=== PATIENT | male | born 1940 | race Caucasian/White ===

== ENCOUNTER → 2018-12-06 13:53 | Outpatient (CLI) | payer MEDICARE, SELFPAY ==
[2018-12-02 10:34] VITALS: BMI 33.4
== END ==
PROVIDERS: Family Provider Internal Medicine; PCP Internal Medicine; Referring Provider Physician Assistant Medical; Visit Provider Physician Assistant Medical
DX: R00.1 Bradycardia, unspecified (principal)
CPT/HCPCS: 93225; 93226

== ENCOUNTER → 2019-04-01 11:58 | Outpatient (CLI) | payer MEDICARE, SELFPAY ==
[2019-03-20 15:53] VITALS: BMI 33.4
[2019-04-01 13:07] LABS: AST(SGOT) 18 U/L (15-37); Alanine Aminotransfer ALT/SGPT 30 U/L (16-61); Albumin, Serum 3.5 g/dL (3.2-5.0); Alkaline Phosphatase 80 U/L (45-117); Bilirubin, Direct 0.12 mg/dL (0.00-0.30); Cholesterol 190 mg/dL (200); Globulin 3.6 g/dL (2.2-4.2); High Density Lipoprotein 44 mg/dL; Protein, Total 7.1 g/dL (6.4-8.2); Triglycerides 141 mg/dL; Very Low Density Lipoprotein 28 mg/dL (5-40)
== END ==
LOC: LAB.FUTURE 11:58 → LAB 04-02 06:33
PROVIDERS: PCP Internal Medicine; Referring Provider Internal Medicine Cardiovascular Disease; Visit Provider Internal Medicine Cardiovascular Disease
DX: I10 Essential (primary) hypertension (principal); Z13.220 Encounter for screening for lipoid disorders
CPT/HCPCS: 36415; 80061; 80076

== ENCOUNTER → 2019-04-07 10:33 | Outpatient (CLI) | payer MEDICARE, SELFPAY ==
[2019-03-20 15:53] VITALS: BMI 33.4
--- NOTE | 2019-04-07 10:34 | ECHOD_ITS ---
Reason For Study: ARRYTHYMIA Procedure This was a 2D Doppler, Color Flow transthoracic echocardiogram. Exam performed in department. Left Ventricle Normal size and thickness. The estimated ejection fraction is 50-55 %. Stage 1 diastolic dysfunction. There is borderline global hypokinesis of the left ventricle. Right Ventricle Mildly dilated right ventricle. Normal systolic function. Atria The left atrium is mildly enlarged. Normal right atrium. Normal atrial septum. Mitral Valve The mitral valve is structurally normal. No prolapse or stenosis seen. Trivial mitral valve insufficiency. Tricuspid Valve Normal tricuspid valve. Unable to estimate RV systolic pressure due to insufficient tricuspid regurgitant envelope. Aortic Valve Normal aortic valve. Trisinus/trileaflet aortic valve. Pulmonic Valve Normal pulmonic valve. Great Vessels Normal aortic root. Normal arch. Normal inferior vena cava. Inferior vena cava collapse with sniff. Pericardium/Pleural No pericardial effusion. MMode/2D Measurements & Calculations LVIDd: 4.9 cm IVSd: 0.84 cm Ao root diam: 3.4 cm LVIDs: 3.6 cm LVPWd: 0.88 cm RVDd: 3.8 cm FS: 26.2 % LAV(MOD-bp): 62.2 ml LVAd ap4: 35.1 cm2 SV(MOD-sp4): 67.0 ml LAV(MOD-bp) Indexed: 29.2 ml/m2 EDV(MOD-sp4): 119.2 ml LAV(MOD-sp2): 55.5 ml EDV(sp4-el): 123.5 ml LAV(MOD-sp4): 66.7 ml LVAs ap4: 20.4 cm2 ESV(MOD-sp4): 52.2 ml ESV(sp4-el): 51.3 ml EF(MOD-sp4): 56.2 % EF(sp4-el): 58.4 % SV(sp4-el): 72.2 ml LA A4 area: 22.0 cm2 LA dimension(2D): 3.9 cm RA A4 area: 19.7 cm2 Time Measurements MV dec time: 0.22 sec Doppler Measurements & Calculations MV E max elver: 65.7 cm/sec Lat Peak E' Elver: 8.1 cm/sec Med Peak E' Elver: 6.0 cm/sec MV A max elver: 60.5 cm/sec E/E' lat: 8.1 E/E' med: 10.9 MV E/A: 1.1 Ao V2 max: 150.5 cm/sec LV V1 max: 91.3 cm/sec PA V2 max: 102.2 cm/sec Ao max P.1 mmHg LV V1 max P.3 mmHg Interpretation Summary The estimated ejection fraction is 50-55 %. Stage 1 diastolic dysfunction. There is borderline global hypokinesis of the left ventricle. The left atrium is mildly enlarged. Trivial mitral valve insufficiency. Unable to estimate RV systolic pressure due to insufficient tricuspid regurgitant envelope. Compared to echo report dated 11/16/2016, no appreciable changes noted. Ordering Physician: Jose Gr Referring Physician: SANDRINE MEANS Performed By: Elena Posada RDCS
== END ==
PROVIDERS: PCP Internal Medicine; Referring Provider Internal Medicine Cardiovascular Disease; Visit Provider Internal Medicine Cardiovascular Disease
DX: R94.31 Abnormal electrocardiogram [ECG] [EKG] (principal); I10 Essential (primary) hypertension; R00.1 Bradycardia, unspecified
CPT/HCPCS: 93306

== ENCOUNTER → 2019-04-14 10:18 | Outpatient (CLI) | payer MEDICARE, SELFPAY ==
[2019-03-20 15:53] VITALS: BMI 33.4
--- NOTE | 2019-04-14 10:19 | STEWCON_ITS ---
Reason For Study: Arrhythmia Stress Results Protocol: Mahesh Protocol WITH DEFINITY Maximum Predicted HR: 144 bpm Target HR: 122 bpm % Maximum Predicted HR: 85 % DurationHeart Rate Stage (mm:ss) (bpm) BP Comment Baseline 46 140/86No Chest Pain; 4 ML Diiluted Definity Mahesh Protocol Stage I 3:00 85 164/62No Chest Pain Mahesh Protocol Stage II 3:00 98 160/74No Chest Pain Mahesh Protocol Stage III 3:00 122 170/74No Chest Pain; Mild Dyspnea Recovery 60 130/76No Chest Pain Stress Duration: 9:00 mm:ss Maximum Stress HR: 122 bpm METS: 10 Baseline Echocardiogram Findings The estimated ejection fraction is 65 %. Stress Echo Wall motion Data Resting WM Intermediate WM Stress WM Resting Wall Motion Wall Motion Stress No regional wall motion No regional wall motion abnormalities noted. abnormalities noted. EKG Data The baseline ECG displays normal sinus rhythm. The patient exercised according to the regular Mahesh protocol for a total duration of 9:00. The maximum heart rate attained was 123 beats per minute. This was 85% of maximum predicted heart rate. The patient exercised into stage 4 of the Mahesh protocol. During stress, there were no ST or T wave changes noted to suggest ischemia. No clinical angina was noted. Interpretation Summary The estimated ejection fraction is 65 %. Normal, adequate, treadmill echocardiogram. Negative for ischemia by EKG and echocardiographic criteria. No anginal symptoms noted. Rare PVC noted. Average exercise capacity for age. Test terminated due to fatigue and legs fatigue. Final LVEF is 75%. Decrease sensitivity due to poor echo windows requiring Definity agent. Patient tolerated procedure well. No complications. The study was technically difficult. Contrast injection was performed. Ordering Physician: Jose Gr Referring Physician: Felton Portillo Performed By: Anca Sears, RACHELLE, RVT
== END ==
PROVIDERS: PCP Internal Medicine; Referring Provider Internal Medicine Cardiovascular Disease; Visit Provider Internal Medicine Cardiovascular Disease
DX: R94.31 Abnormal electrocardiogram [ECG] [EKG] (principal); I10 Essential (primary) hypertension; R00.1 Bradycardia, unspecified
CPT/HCPCS: 93017; 93350; Q9957; A4216; C8928

== ENCOUNTER → 2020-09-02 09:11 | Outpatient (CLI) | payer MEDICARE, SELFPAY ==
[2020-03-22 09:36] VITALS: BMI 32.8
[2020-09-02 16:06] LABS: Anion Gap 6 (5-15); BUN 18 mg/dL (7-18); BUN/Creat Ratio 15.7 RATIO (10-20); Calcium,Total 8.4 mg/dL (8.5-10.1); Chloride 106 mmol/L (98-107); Creatinine, Serum 1.15 mg/dL (0.70-1.30); EST Glomerular Filtration Rate 65 mL/min (>60); Est Glom Filt Rate - Afr Amer 79 mL/min (>60); Glucose 101 mg/dL (74-106); Potassium 4.1 mmol/L (3.5-5.1); Sodium Level 139 mmol/L (136-145)
== END ==
PROVIDERS: PCP Internal Medicine; Referring Provider Internal Medicine Cardiovascular Disease; Visit Provider Internal Medicine Cardiovascular Disease
DX: I10 Essential (primary) hypertension (principal); R00.1 Bradycardia, unspecified; R42 Dizziness and giddiness
CPT/HCPCS: 36415; 80048; 93788

== ENCOUNTER 2021-01-31 16:40 | Emergency (ER) | payer MEDICARE, SELFPAY ==
[2021-01-31 16:42] VITALS: BP 113/77; PULSE 60; RESP 16; TEMP 36.8; BMI 33.4
--- NOTE | 2021-01-31 17:21 | RAD_ITS ---
STUDY: X-RAY CHEST REASON FOR EXAM: Male, 80 years old. covid TECHNIQUE: 1 view COMPARISON: 11/15/2016 FINDINGS: Cardiomediastinal silhouette is unremarkable. Costophrenic angles are sharp. Lungs are clear. The trachea is midline. There is no pneumothorax. The bones are grossly intact. RAD/Chest 1 View (Portable) IMPRESSION: No acute cardiopulmonary process. Electronically Signed: Robin Field MD at 18:33 EST Tel , Service support ,
[2021-01-31 17:26] VITALS: BP 119/83; PULSE 57; RESP 19; O2SAT 92
[2021-01-31 17:41] VITALS: BP 117/88; BP 130/82; BP 139/87; PULSE 56; PULSE 61; PULSE 62
[2021-01-31] MEDS: 0.9% Normal Saline 1,000 ML 1000 ML IV (17:48)
[2021-01-31 18:14] LABS: Absolute Lymphocyte Count 0.73 X10^3/uL (0.83-4.51); Absolute Neutrophil Count 1.9 X10^3/uL (2.0-7.7); Basophil# 0.02 X10^3/uL; Basophil% 0.6 % (0-1); Eosinophil# 0.01 X10^3/uL; Eosinophils% 0.3 % (0-5); Hemoglobin 13.3 g/dL (13.0-16.5); Lymphocyte # 0.73 X10^3/ul (0.83-4.51); Lymphocyte % 23.6 % (19-41); Mean Corp Hgb Conc 33.3 g/dL (32-36); Mean Corpuscular Hgb 30.2 pg (27.0-32.0); Mean Corpuscular Volume 90.7 fL (80-94); Monocyte# 0.47 X10^3/uL; Monocyte% 15.2 % (0-10); NRBC Flagged by Analyzer 0 % (0-5); Neutrophil # 1.85 X10^3/uL (2.7-7.7); Platelet Count 113 K/mm3 (150-450); RBC Distribution Width CV 12.3 % (11.6-14.6); RBC Distribution Width SD 41.1 fl (35.1-43.9); Red Blood Count 4.41 M/mm3 (4.6-6.2); White Blood Count 3.1 K/mm3 (4.4-11.0)
[2021-01-31 18:15] LABS: ALB/GLOB Ratio 0.8 RATIO (0.9-2.4); AST(SGOT) 32 U/L (15-37); Alanine Aminotransfer ALT/SGPT 40 U/L (16-61); Albumin, Serum 2.9 g/dL (3.2-5.0); Alkaline Phosphatase 71 U/L (45-117); Anion Gap 8 (5-15); BUN 19 mg/dL (7-18); BUN/Creat Ratio 19.9 RATIO (10-20); Calcium,Total 8.1 mg/dL (8.5-10.1); Chloride 104 mmol/L (98-107); Creatinine, Serum 0.96 mg/dL (0.70-1.30); EST Glomerular Filtration Rate 81 mL/min (>60); Est Glom Filt Rate - Afr Amer 98 mL/min (>60); Estimated Creatinine Clearance 61.35 ml/min; Globulin 3.8 g/dL (2.2-4.2); Glucose 100 mg/dL (74-106); Potassium 3.7 mmol/L (3.5-5.1); Protein, Total 6.7 g/dL (6.4-8.2); Sodium Level 138 mmol/L (136-145)
[2021-01-31 19:00] VITALS: BP 169/93; PULSE 61; RESP 16; O2SAT 95
[2021-01-31 19:38] LABS: Bacteria 0 SEEN /hpf (None Seen); Mucous, Urine 0 SEEN /hpf (<or=2+); Red Blood Cells-Urine 0 SEEN /hpf (0-5); Squamous Epithelial Cells - UA 0 SEEN /hpf (0-5); White Blood Cells 0 SEEN /hpf (0-5)
[2021-01-31 19:58] LABS: Color, Urine Straw (Yellow); Glucose, Dipstick Normal (Normal); Ketone-Dipstick Negative (Negative); Leukocyte Esterase-Dipstick Negative /ul (Negative); Nitrite-Dipstick Negative (Negative); Occult Blood-Urine Negative /ul (Negative); Protein-Dipstick Negative (Negative); Urine Bilirubin Dipstick Negative (Negative); Urine Clarity Clear (Clear); Urine Urobilinogen Normal (Normal); Urine pH 6.5 (5.0 - 8.0)
[2021-01-31 20:01] VITALS: BP 152/89; PULSE 66; RESP 16; O2SAT 95
--- NOTE | 2021-01-31 21:04 | EDS_ITS ---
HPI History of Present Illness Chief Complaint: Hypotension Informant: patient and family Narrative Narrative: Patient presenting to the emergency department for low blood pressure. Patient states that he was diagnosed with COVID-19 about 2 weeks ago. He states that today his blood pressure was reading 90 systolic and his head felt very heavy. He feels generalized fatigue but has felt that throughout the Covid diagnosis. Patient denies any significant shortness of breath. He has had decreased appetite PFSH PFSH Medical History Essential hypertension Sinus bradycardia Home Medications aspirin 81 mg PO DAILY@0800 11/15/16 [History Last Taken 11/15/16] zolpidem 5 mg PO QHS PRN 11/15/16 [History Last Taken Unknown] tamsulosin 0.4 mg capsule 0.4 mg PO BID cap 06/14/17 [History Last Taken Unknown] omeprazole 40 mg capsule,delayed release 40 mg PO DAILY 05/28/18 [History Last Taken Unknown] benzonatate 100 mg PO TID PRN 01/31/21 [History Last Taken Unknown] doxycycline hyclate 100 mg PO BID 01/31/21 [History Last Taken Unknown] fluticasone propionate 1 spray INTRANASAL DAILY 01/31/21 [History Last Taken Unknown] losartan 12.5 mg PO DAILY 01/31/21 [History Last Taken Unknown] losartan 25 mg PO QHS 01/31/21 [History Last Taken Unknown] Allergy/AdvReac Type Severity Reaction Status Date / Time amoxicillin Allergy Unknown Verified 01/31/21 16:46 lisinopril [From Zestril] Allergy Unknown Verified 01/31/21 16:46 suture Allergy Swelling Verified 01/31/21 16:46 azithromycin AdvReac constipatio Verified 01/31/21 16:46 n Family History Father CAD (coronary artery disease) CVA (cerebral vascular accident) Myocardial infarction Sister Heart disease Sister Heart disease Social History Smoking Status: Former smoker alcohol intake: never substance use type: does not use ROS ROS ED Constitutional Constitutional ED: Reports chills and fever(s); Denies weight loss Eyes Eyes: Denies change in vision or diplopia ENT ENT ED: Reports rhinorrhea; Denies ear pain or sore throat Cardiovascular Cardiovascular: Denies chest pain, orthopnea, palpitations or racing heartbeat Respiratory/Chest Respiratory/Chest: Reports cough; Denies dyspnea or orthopnea Gastrointestinal Gastrointestinal: Reports diarrhea and vomiting; Denies abdominal pain or nausea Genitourinary Genitourinary ED: Denies dysuria, hematuria or urinary frequency Musculoskeletal Musculoskeletal: Reports myalgias; Denies arthralgias Integumentary Denies abscess or rash Neurologic Neurologic: Reports headache(s); Denies weakness Psychiatric Psychiatric: Denies anxiety, depression, suicidal ideation or suicidal thoughts Endocrine Endocrinology: Denies polydipsia, polyphagia or polyuria Allergic/Immunologic Allergic/Immunologic ED: Denies mouth swelling, tongue swelling or urticaria EXAM Physical Exam Const Vital Signs: 01/31/21 16:42 01/31/21 17:26 01/31/21 17:41 Temperature 98.2 F Temperature Source Temporal Pulse Rate 60 57 L Pulse Rate [Lying] 56 L Pulse Rate [Sitting] 61 Pulse Rate [Standing] 62 Respiratory Rate 16 19 H Respiratory Effort Normal Non-Labored Respiratory Pattern Normal Blood Pressure 113/77 119/83 H Blood Pressure [Lying] 130/82 H Blood Pressure [Sitting] 139/87 H Blood Pressure [Standing] 117/88 H Blood Pressure Mean 89 95 Blood Pressure Mean [Lying] 98 Blood Pressure Mean [Sitting] 104 Blood Pressure Mean [Standing] 97 Pulse Ox 92 Oxygen Delivery Method Room Air 01/31/21 19:00 01/31/21 20:01 Temperature Temperature Source Pulse Rate 61 66 Pulse Rate [Lying] Pulse Rate [Sitting] Pulse Rate [Standing] Respiratory Rate 16 16 Respiratory Effort Respiratory Pattern Blood Pressure 169/93 H 152/89 H Blood Pressure [Lying] Blood Pressure [Sitting] Blood Pressure [Standing] Blood Pressure Mean 118 Blood Pressure Mean [Lying] Blood Pressure Mean [Sitting] Blood Pressure Mean [Standing] Pulse Ox 95 95 Oxygen Delivery Method Room Air Positive well nourished and well developed General Appearance ED: well developed HEENT Reports normocephalic, head/scalp atraumatic, TM's clear and moist mucous membranes Negative for trauma Tympanic Membrane ED: Yes TM's clear Eyes PERRL and EOMs intact bilaterally Neck no lymphadenopathy, supple and no JVD Resp normal respiratory effort and clear to auscultation bilaterally Cardio regular rate, regular rhythm and no murmurs GI normal to inspection, nondistended, normoactive bowel sounds and non-tender Palpation: soft Back/Spine no CVA tenderness and normal ROM Extremity normal to inspection General Extremety ED: Negative for edema General Extremity: Negative for edema Neuro oriented x3 and CN's II-XII intact bilaterally Sensorium / Orientation: alert Motor Exam: strength 5/5 throughout Psych mental status grossly normal Mood & Affect: Negative for depressed or tearful Skin no rashes or lesions noted and no wounds MDM MDM MDM Narrative Medical decision making narrative: Patient is not orthostatic. He has had normotensive readings. He is slightly leukopenic at 3.1. Platelets 113. Most likely these are due to his Covid diagnosis. Urinalysis is normal has a specific gravity 1.01. He clinically appears well and I think can be stable for discharge. Lab Data Attestation: I reviewed the patient's lab results. Labs: Laboratory Results - last 24 hr 01/31/21 01/31/21 01/31/21 17:40 17:40 19:30 WBC 3.1 L RBC 4.41 L Hgb 13.3 Hct 40.0 MCV 90.7 MCH 30.2 MCHC 33.3 RDW Std Deviation 41.1 RDW Coeff of Sudeep 12.3 Plt Count 113 L MPV 11.0 Immature Gran % (Auto) 0.300 Neut % (Auto) 60.0 Lymph % (Auto) 23.6 [place] % (Auto) 15.2 H Eos % (Auto) 0.3 Baso % (Auto) 0.6 Absolute Neuts (auto) 1.9 L Absolute Lymphs (auto) 0.73 L Nucleated RBC % 0 Sodium 138 Potassium 3.7 Chloride 104 Carbon Dioxide 26.0 Anion Gap 8 BUN 19 H Creatinine 0.96 Estim Creat Clear Calc 61.35 Est GFR (MDRD) Af Amer 98 Est GFR (MDRD) Non-Af 81 BUN/Creatinine Ratio 19.9 Glucose 100 Calcium 8.1 L Total Bilirubin 0.30 AST 32 ALT 40 Alkaline Phosphatase 71 Total Protein 6.7 Albumin 2.9 L Globulin 3.8 Albumin/Globulin Ratio 0.8 L Urine Color Straw Urine Clarity Clear Urine pH 6.5 Ur Specific [place] 1.010 Urine Protein Negative Urine Glucose (UA) Normal Urine Ketones Negative Urine Occult Blood Negative Urine Nitrite Negative Urine Bilirubin Negative Urine Urobilinogen Normal Ur Leukocyte Esterase Negative Urine RBC 0 SEEN Urine WBC 0 SEEN Ur Squamous Epith Cells 0 SEEN Urine Bacteria 0 SEEN Urine Mucus 0 SEEN Radiography Diagnostic Testing: Clinical Impression(s) from Imaging Studies Chest X-Ray 01/31/21 17:21 IMPRESSION: No acute cardiopulmonary process. Electronically Signed: Robin Field MD at 18:33 EST Tel , Service support , Discharge Plan Triage Chief Complaint: Hypotension ED Provider: Jose Grimaldo Dx/Rx/DC Orders Clinical Impression: Hypotension, COVID-19 Instructions: ED Low Blood Pressure, All Causes Prescriptions: No Action omeprazole 40 mg capsule,delayed release(DR/EC) 40 mg PO DAILY RF: 0 aspirin 81 MG tablet,chewable 81 mg PO DAILY@0800 RF: 0 zolpidem 5 MG tablet 5 mg PO QHS PRN (Reason: Sleep) RF: 0 tamsulosin 0.4 mg capsule,extended release 24hr 0.4 mg PO BID RF: 0 benzonatate 100 mg capsule 100 mg PO TID PRN (Reason: Cough) RF: 0 losartan 25 mg tablet 12.5 mg PO DAILY RF: 0 fluticasone propionate 50 mcg/actuation spray,suspension 1 spray INTRANASAL DAILY RF: 0 doxycycline hyclate 100 mg tablet 100 mg PO BID RF: 0 losartan 25 mg tablet 25 mg PO QHS RF: 0 Primary Care Provider: Felton Portillo Referrals: Felton Portillo MD [Primary Care Provider] - As Needed Disposition Disposition: Home, Self Care Discharge Date/Time: 01/31/21 20:06
== END 2021-01-31 20:06 | disposition home or self-care (01) ==
PROVIDERS: Emergency Provider Emergency Medicine; PCP Internal Medicine
DX: U07.1 COVID-19 (principal); I95.9 Hypotension, unspecified; I10 Essential (primary) hypertension; Z79.82 Long term (current) use of aspirin; Z79.899 Other long term (current) drug therapy; Z87.891 Personal history of nicotine dependence
CPT/HCPCS: 71045; 80053; 81001; 85025; 96360; 96361; 99285; J7030; A4216

== ENCOUNTER → 2021-09-13 | Outpatient (CLI) | payer MEDICARE, SELFPAY ==
--- NOTE | 2021-09-13 13:09 | ECHOD_ITS ---
Reason For Study: DYSPNEA/SOB Procedure This was a 2D Doppler, Color Flow transthoracic echocardiogram. The study was technically difficult. Exam performed in department. Left Ventricle Based upon the 2D echocardiographic images obtained there appears to be grossly normal left ventricular size, wall motion, and systolic function. The estimated ejection fraction is 55 %. Diastolic function is indeterminate. Right Ventricle Normal RV size. Normal systolic function. Atria Normal left atrium. Normal right atrium. No doppler evidence for ASD. Mitral Valve There is no mitral annular calcification. Normal mitral valve. Mild (1+) mitral valve insufficiency. Tricuspid Valve Normal tricuspid valve. Trivial tricuspid valve insufficiency. Unable to estimate RV systolic pressure/pulmonary artery pressure due to technically difficult study. Aortic Valve Trisinus/trileaflet aortic valve. Mild focal aortic valve thickening. Mild focal aortic valve calcification. Pulmonic Valve The pulmonic valve is not well visualized. Mild (1+) pulmonic valve insufficiency. Great Vessels The aortic root is not well visualized. Pericardium/Pleural No pericardial effusion. MMode/2D Measurements & Calculations LVIDd: 5.4 cm IVSd: 1.1 cm Ao root diam: 3.3 cm LVIDs: 3.9 cm LVPWd: 0.97 cm LA dimension: 3.9 cm RVDd: 3.8 cm FS: 28.9 % LAV(MOD-bp): 77.1 ml LA A4 area: 23.8 cm2 RA A4 area: 19.9 cm2 LAV(MOD-bp) Indexed: 36.4 ml/m2 LAV(MOD-sp2): 78.1 ml LAV(MOD-sp4): 76.2 ml Time Measurements MV dec time: 0.26 sec Doppler Measurements & Calculations MV E max elver: 54.4 cm/sec Lat Peak E' Elver: 7.2 cm/sec Med Peak E' Elver: 6.9 cm/sec MV A max elver: 60.3 cm/sec E/E' lat: 7.6 E/E' med: 7.8 MV E/A: 0.90 MV dec slope: 224.3 cm/sec2 Ao V2 max: 133.5 cm/sec LV V1 max: 97.6 cm/sec Ao max P.1 mmHg LV V1 max P.8 mmHg Ao V2 mean: 86.1 cm/sec LV V1 mean P.9 mmHg Ao mean P.5 mmHg LV V1 mean: 62.7 cm/sec Ao V2 VTI: 31.3 cm LV V1 VTI: 22.4 cm PA V2 max: 109.7 cm/sec ECHO/Echo Complete Interpretation Summary The study was technically difficult. Based upon the 2D echocardiographic images obtained there appears to be grossly normal left ventricular size, wall motion, and systolic function. The estimated ejection fraction is 55 %. Mild (1+) mitral valve insufficiency. Trivial tricuspid valve insufficiency. Mild focal aortic valve thickening. Mild focal aortic valve calcification. Mild (1+) pulmonic valve insufficiency. Unable to estimate RV systolic pressure/pulmonary artery pressure due to techni jose difficult study. Diastolic function is indeterminate. Ordering Physician: Crystal Gutierrez Referring Physician: Felton Portillo Performed By: Anca Sears, RACHELLE, RVT
== END | disposition home or self-care (01) ==
LOC: CVS 13:07
PROVIDERS: PCP Internal Medicine; Referring Provider Nurse Practitioner Gerontology; Visit Provider Nurse Practitioner Gerontology
DX: R06.09 Other forms of dyspnea (principal)
CPT/HCPCS: 93306

== ENCOUNTER → 2022-05-17 | Outpatient (CLI) | payer MEDICARE, SELFPAY ==
[2022-05-17 16:03] LABS: BNP,B-Type NATRIURETIC PEPTIDE 52.2 pg/mL (0-100)
[2022-05-17 16:04] LABS: Absolute Lymphocyte Count 1.32 X10^3/uL (0.83-4.51); Absolute Neutrophil Count 3.9 X10^3/uL (2.0-7.7); Basophil# 0.05 X10^3/uL; Basophil% 0.8 % (0-1); Eosinophil# 0.13 X10^3/uL; Eosinophils% 2.2 % (0-5); Hematocrit 41.2 % (40-54); Hemoglobin 13.3 g/dL (13.0-16.5); Lymphocyte # 1.32 X10^3/ul (0.83-4.51); Mean Corp Hgb Conc 32.3 g/dL (32-36); Mean Corpuscular Hgb 30.5 pg (27.0-32.0); Mean Corpuscular Volume 94.5 fL (80-94); Mean Platelet Vol. 10.5 fl (6.2-12.0); Monocyte# 0.54 X10^3/uL; NRBC Flagged by Analyzer 0 % (0-5); Neutrophil # 3.94 X10^3/uL (2.7-7.7); Neutrophil % 65.7 % (47-70); Platelet Count 157 K/mm3 (150-450); RBC Distribution Width SD 45.1 fl (35.1-43.9); Red Blood Count 4.36 M/mm3 (4.6-6.2)
[2022-05-17 16:21] LABS: Anion Gap 1 (5-15); BUN 21 mg/dL (7-18); BUN/Creat Ratio 18.1 RATIO (10-20); Calcium,Total 8.6 mg/dL (8.5-10.1); Chloride 107 mmol/L (98-107); Creatinine, Serum 1.16 mg/dL (0.70-1.30); EST Glomerular Filtration Rate 64 mL/min (>60); Est Glom Filt Rate - Afr Amer 78 mL/min (>60); Free T3 2.2 pg/mL (2.18-3.98); Glucose 88 mg/dL (74-106); Potassium 4.2 mmol/L (3.5-5.1); Sodium Level 138 mmol/L (136-145); T4 Free Direct 0.95 ng/dL (0.76-1.46); Thyroid Stim Hormone (TSH) 1.92 uIU/mL (0.358-3.74)
== END | disposition home or self-care (01) ==
LOC: LAB 15:11
PROVIDERS: PCP Internal Medicine; Referring Provider Nurse Practitioner Gerontology; Visit Provider Nurse Practitioner Gerontology
DX: R06.09 Other forms of dyspnea (principal); R53.83 Other fatigue
CPT/HCPCS: 36415; 80048; 83880; 84439; 84443; 84481; 85025

== ENCOUNTER → 2022-05-24 | Outpatient (CLI) | payer MEDICARE, SELFPAY ==
--- NOTE | 2022-05-24 09:51 | STRESSREP ---
Stress Test Report Date: 05/24/2022 Procedure: Exercise tolerance test/imaging study Indications: Chest Consent: Per the patient Procedure: The patient exercised on a Mahesh protocol for 6-minute achieving a peak heart rate of 112 bpm (79% predicted maximal heart rate) with a peak blood pressure 172/90 mmHg and a peak MET capacity of seven-point METs. The baseline ECG demonstrated normal sinus rhythm. The peak exercise ECG demonstrated no ischemic change. There were no cardiac dysrhythmias pretest, during exercise, or recovery. The functional capacity was considered below average. There was no complaint of chest discomfort during exercise or recovery. The examination was discontinued secondary to dyspnea and fatigue. The patient was injected with 14.6 mCi of technetium 99m Cardiolite and subsequently rest SPECT Cardiolite nuclear imaging was obtained in the horizontal long, vertical long, and short axis views. Post-exercise, the patient was injected with 44.1 mCi of technetium 99m Cardiolite and subsequently stress SPECT Cardiolite nuclear imaging was obtained in the horizontal long, vertical long, and short axis views. A gated Cardiolite study at peak stress was obtained. Rest and stress SPECT Cardiolite nuclear imaging status post realignment, normalization, and attenuation correction, demonstrates the appearance of relative uniform tracer uptake and myocardial perfusion appearing within normal limits. There is end systolic thickening and brightening. The gated Cardiolite study demonstrates myocardial thickening and inward wall motion. The reported LVEF is 60%. Impression: 1. 79% maximum predicted heart rate achieved. 2. Peak exercise ECG no ischemic changes 3. There were no cardiac dysrhythmias pretest, during exercise, or recovery 4. Rest and stress SPECT Cardiolite nuclear imaging demonstrate no fixed or reversible perfusion defects. 5. The gated Cardiolite study reports an LVEF of 60%. This note was generated with [employer] software. It may contain incorrect words, spelling, and punctuation that were not noted in checking the note before signing.
== END | disposition home or self-care (01) ==
PROVIDERS: PCP Internal Medicine; Referring Provider Nurse Practitioner Gerontology; Visit Provider Nurse Practitioner Gerontology
DX: R00.1 Bradycardia, unspecified (principal); R07.9 Chest pain, unspecified; R53.83 Other fatigue; R06.09 Other forms of dyspnea
CPT/HCPCS: 78452; 93017; 93225; 93226; A9500; A4216

== ENCOUNTER → 2022-06-19 | Outpatient (CLI) | payer MEDICARE, SELFPAY ==
[2022-06-19 12:05] LABS: Hematocrit 43.9 % (40-54); Hemoglobin 14.3 g/dL (13.0-16.5); Mean Corp Hgb Conc 32.6 g/dL (32-36); Mean Corpuscular Hgb 30.9 pg (27.0-32.0); Mean Corpuscular Volume 94.8 fL (80-94); Mean Platelet Vol. 10.6 fl (6.2-12.0); Platelet Count 149 K/mm3 (150-450); RBC Distribution Width SD 45.2 fl (35.1-43.9); Red Blood Count 4.63 M/mm3 (4.6-6.2)
[2022-06-19 12:23] LABS: BNP,B-Type NATRIURETIC PEPTIDE 35.7 pg/mL (0-100)
[2022-06-19 12:46] LABS: Anion Gap 0 (5-15); BUN 19 mg/dL (7-18); BUN/Creat Ratio 17.6 RATIO (10-20); Chloride 107 mmol/L (98-107); Creatinine, Serum 1.08 mg/dL (0.70-1.30); EST Glomerular Filtration Rate 70 mL/min (>60); Est Glom Filt Rate - Afr Amer 85 mL/min (>60); Glucose 109 mg/dL (74-106); Potassium 4.4 mmol/L (3.5-5.1); Sodium Level 137 mmol/L (136-145); T4 Total, Thyroxin 8.7 ug/dL (4.5-12.1); Thyroid Stim Hormone (TSH) 1.29 uIU/mL (0.358-3.74)
== END | disposition home or self-care (01) ==
LOC: LAB 11:09
PROVIDERS: PCP Internal Medicine; Referring Provider Physician Assistant Medical; Visit Provider Physician Assistant Medical
DX: R06.09 Other forms of dyspnea (principal); R53.83 Other fatigue; I95.9 Hypotension, unspecified; R00.1 Bradycardia, unspecified
CPT/HCPCS: 36415; 80048; 83880; 84436; 84443; 85027

== ENCOUNTER 2022-06-21 15:08 | Emergency (ER) | payer MEDICARE, SELFPAY ==
[2022-06-21 15:10] VITALS: BP 177/97; PULSE 57; RESP 14; TEMP 36.2; O2SAT 98; BMI 33.3
--- NOTE | 2022-06-21 15:24 | EKG12_ITS ---
Test Reason : SCOTTY Blood Pressure : / mmHG Vent. Rate : 050 BPM Atrial Rate : 050 BPM P-R Int : 182 ms QRS Dur : 108 ms QT Int : 466 ms P-R-T Axes : 001 000 005 degrees QTc Int : 424 ms Sinus bradycardia Nonspecific ST abnormality Abnormal ECG Confirmed by ANGIE BUSTSO, TAL ([id number]), online content editor KAREN LEOS ([id number]) on 06/23/2022 8:01:52 AM Referred By: Confirmed By:TAL ADAMS MD
--- NOTE | 2022-06-21 15:25 | EDS_ITS ---
HPI History of Present Illness Chief Complaint: Dizziness Detail of Chief Complaint: Generalized weakness Informant: patient, spouse/S.O. and family Narrative Narrative: Patient presents to the emergency department with complaint of generalized weakness and bradycardia. Patient has history of bradycardia for which she does see cardiology. Over the last several weeks has had increased weakness and heart rate persistently in the 40s. Patient sleeping more. Mild exertional dyspnea. Patient states he had a stress test a month ago that was normal. He is never had a heart catheterization. He has no heart stents or cardiac history. He denies any chest pain. He denies blood in stool or black tarry stools. Denies fever or recent illness. Patient complains of some urinary frequency but no dysuria or hematuria. Patient states that he had a lot of palpitations 4 days ago but he has had these for weeks. Prior similar symptoms: Yes PFSH PFSH Medical History (Reviewed 05/17/22 @ 14:30 by Crystal Gutierrez FILE DRAWER FINISHER, FILE DRAWER FINISHER-C) Essential hypertension Sinus bradycardia Home Medications aspirin 81 mg chewable tablet 81 mg PO DAILY@0800 health maintenance 11/15/16 [History Last Taken 11/15/16] zolpidem 5 mg tablet 5 mg PO QHS PRN Sleep 11/15/16 [History Last Taken Unknown] omeprazole 40 mg capsule,delayed release 40 mg PO DAILY 05/28/18 [History Last Taken Unknown] benzonatate 100 mg capsule 100 mg PO TID PRN Cough 01/31/21 [History Last Taken Unknown] fluticasone furoate 200 mcg-vilanterol 25 mcg/dose inhalation powder (Breo Ellipta) 1 inh inhalation DAILY 11/24/21 [History Last Taken Unknown] tamsulosin 0.4 mg capsule 0.4 mg PO DAILY prostate 05/17/22 [History Last Taken Unknown] midodrine 2.5 mg tablet 2.5 mg PO BID #60 tabs 06/01/22 [Rx Last Taken Unknown] Allergy/AdvReac Type Severity Reaction Status Date / Time amoxicillin Allergy Unknown Verified 05/17/22 14:32 lisinopril [From Zestril] Allergy Unknown Verified 05/17/22 14:32 suture Allergy Swelling Verified 05/17/22 14:32 azithromycin AdvReac constipatio Verified 05/17/22 14:32 n Family History (Reviewed 05/17/22 @ 14:30 by Crystal Gutierrez FILE DRAWER FINISHER, FILE DRAWER FINISHER-C) Father CAD (coronary artery disease) CVA (cerebral vascular accident) Myocardial infarction Sister Heart disease Sister Heart disease Social History (Reviewed 05/17/22 @ 14:30 by Crystal Gutierrez FILE DRAWER FINISHER, FILE DRAWER FINISHER-C) Smoking Status: Former smoker alcohol intake: never substance use type: does not use ROS ROS ED Review of Systems ROS Unobtainable: other Constitutional Constitutional ED: Reports lethargy; Denies chills, fever(s), sweats or weight loss Eyes Eyes: Denies blurry vision, change in vision or diplopia ENT ENT ED: Denies rhinorrhea or sore throat Cardiovascular Cardiovascular: Reports palpitations; Denies chest pain, orthopnea or racing heartbeat Respiratory/Chest Respiratory/Chest: Reports dyspnea; Denies cough, dyspnea on exertion, orthopnea or sputum Gastrointestinal Gastrointestinal: Denies abdominal pain, diarrhea, nausea or vomiting Genitourinary Genitourinary ED: Denies dysuria, hematuria or urinary frequency Musculoskeletal Musculoskeletal: Denies arthralgias, back pain, myalgias or neck pain Integumentary Denies abscess, Abrasions or rash Neurologic Neurologic: Reports weakness; Denies headache(s) Psychiatric Psychiatric: Denies anxiety, depression or suicidal thoughts Endocrine Endocrinology: Denies polydipsia, polyphagia or polyuria Hematologic/Lymphatic Hematologic/Lymphatic: Denies easy bleeding, easy bruising or lymphadenopathy Allergic/Immunologic Allergic/Immunologic ED: Denies mouth swelling, tongue swelling or urticaria EXAM Physical Exam Const Vital Signs: 06/21/22 15:10 06/21/22 15:35 06/21/22 15:35 Temperature 97.1 F L Temperature Source Temporal Pulse Rate 57 L 68 Pulse Rate [Lying] Pulse Rate [Sitting (for 1 minute prior to obtaining)] Pulse Rate [Standing (for 1 minute prior to obtaining)] Respiratory Rate 14 23 H Respiratory Pattern Tachypnea Blood Pressure 177/97 H 133/118 H Blood Pressure [Lying] Blood Pressure [Sitting (for 1 minute prior to obtaining)] Blood Pressure [Standing (for 1 minute prior to obtaining)] Blood Pressure Mean 123 123 Blood Pressure Mean [Lying] Blood Pressure Mean [Sitting (for 1 minute prior to obtaining)] Blood Pressure Mean [Standing (for 1 minute prior to obtaining)] Pulse Ox 98 97 Oxygen Delivery Method Room Air Room Air 06/21/22 15:51 Temperature Temperature Source Pulse Rate Pulse Rate [Lying] 56 L Pulse Rate [Sitting (for 1 minute prior to obtaining)] 52 L Pulse Rate [Standing (for 1 minute prior to obtaining)] 56 L Respiratory Rate Respiratory Pattern Blood Pressure Blood Pressure [Lying] 187/96 H Blood Pressure [Sitting (for 1 minute prior to obtaining)] 181/95 H Blood Pressure [Standing (for 1 minute prior to obtaining)] 137/86 H Blood Pressure Mean Blood Pressure Mean [Lying] 126 Blood Pressure Mean [Sitting (for 1 minute prior to obtaining)] 123 Blood Pressure Mean [Standing (for 1 minute prior to obtaining)] 103 Pulse Ox Oxygen Delivery Method Positive well nourished and well developed General Appearance ED: well developed and NAD HEENT Reports TM's clear and moist mucous membranes normocephalic and atraumatic; Negative for trauma or tenderness Tympanic Membrane ED: Yes TM's clear Eyes PERRL and EOMs intact bilaterally General Eye ED: Negative for pale conjunctiva or scleral icterus Neck no lymphadenopathy, supple and no JVD General: Negative for tenderness Chest Wall inspection of chest normal and palpation of chest normal Chest: Negative for tenderness Resp normal respiratory effort and clear to auscultation bilaterally Effort and Inspection: Negative for respiratory distress or pain with movement Auscultation: Negative for rhonchi, wheezes or diminished lung sounds Cardio regular rhythm, S1 normal heart sound, S2 normal heart sound and no murmurs; Negative for regular rate Rate: bradycardia Peripheral Pulses: pulses 2+ throughout GI normal to inspection, nondistended, normoactive bowel sounds, soft to palpation, non-tender, non-distended and no masses Back/Spine no CVA tenderness and no thoracic nor lumbar tenderness Extremity normal to inspection General Extremety ED: Negative for edema General Extremity: Negative for edema Neuro oriented x3, CN's II-XII intact bilaterally, no sensory deficits noted and gait normal Sensorium / Orientation: awake, alert, oriented to person, oriented to place and oriented to time Motor Exam: strength 5/5 throughout and strength abnormal Psych mental status grossly normal Skin no rashes or lesions noted and no wounds MDM MDM MDM Narrative Medical decision making narrative: Patient presents with generalized weakness and bradycardia. Bradycardia has been ongoing for years. Patient had recent stress testing and recent Holter monitor. He had blood work done 3 days ago through his cardiology office that was unremarkable including CBC and chemistries and TSH. Patient not hypotensive with his bradycardia. Clinically he does not look ill. IV line established on arrival. EKG obtained showed a sinus bradycardia with a rate of [address] changes noted. CBC with differential was normal. Chemistries unremarkable. Troponin was normal. TSH was normal at 1.42. Urinalysis obtained was normal. LFTs were normal. Discussed patient care and case with cardiology on-call Dr. Biswas who did not feel there was any indication for admission. was concerned and questioning if he would need a heart cath or a pacemaker. It was felt these discussions could be had as an outpatient given his recent stress testing and the fact that he is not having chest pain and he has normal cardiac enzymes it was felt he was low risk. Patient will be discharged to home and advised to follow-up with cardiology. Also discussed whether or not family feels comfortable taking him home and caring for him. They do not want to be admitted for placement as they feel they can still care for him. I did review patient's last Holter monitor results which showed sinus bradycardia essentially with a rate as low as 38 and a size 75. Patient had occasional PACs. No lethal rhythms noted. I reviewed patient's stress test result from May which did not show any significant abnormalities. Lab Data Labs: Laboratory Results - last 24 hr 06/21/22 06/21/22 06/21/22 15:25 15:25 15:55 WBC 6.5 RBC 4.61 Hgb 14.2 Hct 44.3 MCV 96.1 H MCH 30.8 MCHC 32.1 RDW Std Deviation 45.3 H RDW Coeff of Sudeep 12.7 Plt Count 150 MPV 10.3 Immature Gran % (Auto) 0.600 Neut % (Auto) 59.4 Lymph % (Auto) 27.6 Frontier % (Auto) 10.2 H Eos % (Auto) 1.4 Baso % (Auto) 0.8 Absolute Neuts (auto) 3.8 Absolute Lymphs (auto) 1.78 Nucleated RBC % 0 Sodium 141 Potassium 4.2 Chloride 107 Carbon Dioxide 27.0 Anion Gap 7 BUN 19 H Creatinine 1.13 Estim Creat Clear Calc 50.44 Est GFR (MDRD) Af Amer 80 Est GFR (MDRD) Non-Af 66 BUN/Creatinine Ratio 16.8 Glucose 73 L Calcium 8.6 Total Bilirubin 0.40 AST 19 ALT 27 Alkaline Phosphatase 71 Troponin I High Sens 9 Total Protein 7.2 Albumin 3.4 Globulin 3.8 Albumin/Globulin Ratio 0.9 TSH 1.42 Urine Color Yellow Urine Clarity Clear Urine pH 6.0 Ur Specific Thornton 1.010 Urine Protein Negative Urine Glucose (UA) Normal Urine Ketones Negative Urine Occult Blood Negative Urine Nitrite Negative Urine Bilirubin Negative Urine Urobilinogen Normal Ur Leukocyte Esterase Negative Urine RBC 0 SEEN Urine WBC 0-5 SEEN Ur Squamous Epith Cells 0 SEEN Urine Bacteria 0 SEEN Urine Mucus 0 SEEN Radiography Diagnostic Testing: Clinical Impression(s) from Imaging Studies Chest X-Ray 06/21/22 16:00 IMPRESSION: No radiographic evidence of acute cardiopulmonary disease. Electronically Signed: Walter Dunham DO at 16:27 EDT Reading Location ID and State: [facility] / [place] Tel [phone], Service support , 1 view chest x-ray obtained interpreted by myself as no evidence of infiltrate or pneumothorax or acute disease process. Radiology in agreement. EKG Initial EKG: Attestation: I personally reviewed and interpreted this EKG as follows: Comments: Sinus bradycardia with a rate of 50 bpm with no acute ST segment changes. Discharge Plan Triage Chief Complaint: Dizziness ED Provider: Igor Mcmahon Dx/Rx/DC Orders Clinical Impression: Weakness, Bradycardia Instructions: ED Bradycardia, ED Weakness (Uncertain Cause) Prescriptions: No Action omeprazole 40 mg capsule,delayed release(DR/EC) 40 mg PO DAILY fluticasone furoate-vilanterol [Breo Ellipta] 200-25 mcg/dose blister with device 1 inh inhalation DAILY tamsulosin 0.4 mg capsule 0.4 mg PO DAILY Label Comments: aspirin 81 MG tablet,chewable 81 mg PO DAILY@0800 zolpidem 5 MG tablet 5 mg PO QHS PRN (Reason: Sleep) Label Comments: benzonatate 100 mg capsule 100 mg PO TID PRN (Reason: Cough) midodrine 2.5 mg tablet 2.5 mg PO BID Qty: 60 11RF Primary Care Provider: Felton Portillo Referrals: Eloy Biswas MD [Med Staff - Active Staff] - 3-5 Days Felton Portillo MD [Primary Care Provider] - 3-5 Days Disposition Disposition: Home, Self Care
[2022-06-21] MEDS: 0.9% Normal Saline 1,000 ML 150 ML IV (15:32)
[2022-06-21 15:35] VITALS: BP 133/118; PULSE 68; RESP 23; O2SAT 97
[2022-06-21 15:37] LABS: Absolute Lymphocyte Count 1.78 X10^3/uL (0.83-4.51); Absolute Neutrophil Count 3.8 X10^3/uL (2.0-7.7); Basophil# 0.05 X10^3/uL; Basophil% 0.8 % (0-1); Eosinophil# 0.09 X10^3/uL; Eosinophils% 1.4 % (0-5); Hematocrit 44.3 % (40-54); Hemoglobin 14.2 g/dL (13.0-16.5); Lymphocyte # 1.78 X10^3/ul (0.83-4.51); Lymphocyte % 27.6 % (19-41); Mean Corp Hgb Conc 32.1 g/dL (32-36); Mean Corpuscular Hgb 30.8 pg (27.0-32.0); Mean Corpuscular Volume 96.1 fL (80-94); Mean Platelet Vol. 10.3 fl (6.2-12.0); Monocyte# 0.66 X10^3/uL; Monocyte% 10.2 % (0-10); NRBC Flagged by Analyzer 0 % (0-5); Neutrophil # 3.84 X10^3/uL (2.7-7.7); Neutrophil % 59.4 % (47-70); Platelet Count 150 K/mm3 (150-450); RBC Distribution Width CV 12.7 % (11.6-14.6); RBC Distribution Width SD 45.3 fl (35.1-43.9); Red Blood Count 4.61 M/mm3 (4.6-6.2); White Blood Count 6.5 K/mm3 (4.4-11.0)
[2022-06-21 15:51] VITALS: BP 137/86; BP 181/95; BP 187/96; PULSE 52; PULSE 56
--- NOTE | 2022-06-21 16:00 | RAD_ITS ---
INDICATION: weakness, bradycardia EXAMINATION/TECHNIQUE: X-RAY - XR Chest 1 View COMPARISON: FINDINGS: LINES/DEVICES: None. LUNGS: No consolidation, edema or effusion. No pneumothorax. MEDIASTINUM AND CARDIOVASCULAR STRUCTURES: Cardiac silhouette not enlarged. Central airways and mediastinal contour are unremarkable. BONES AND SOFT TISSUES: Unremarkable. RAD/Chest 1 View (Portable) IMPRESSION: No radiographic evidence of acute cardiopulmonary disease. Electronically Signed: Walter Dunham DO at 16:27 EDT ,
[2022-06-21 16:04] LABS: Bacteria 0 SEEN /hpf (None Seen); Mucous, Urine 0 SEEN /hpf (<or=2+); Red Blood Cells-Urine 0 SEEN /hpf (0-5); Squamous Epithelial Cells - UA 0 SEEN /hpf (0-5)
[2022-06-21 16:12] LABS: Color, Urine Yellow (Yellow); Glucose, Dipstick Normal (Normal); Ketone-Dipstick Negative (Negative); Leukocyte Esterase-Dipstick Negative /ul (Negative); Nitrite-Dipstick Negative (Negative); Occult Blood-Urine Negative /ul (Negative); Protein-Dipstick Negative (Negative); Urine Bilirubin Dipstick Negative (Negative); Urine Clarity Clear (Clear); Urine Urobilinogen Normal (Normal)
[2022-06-21 16:15] LABS: ALB/GLOB Ratio 0.9 RATIO (0.9-2.4); AST(SGOT) 19 U/L (15-37); Alanine Aminotransfer ALT/SGPT 27 U/L (16-61); Albumin, Serum 3.4 g/dL (3.2-5.0); Alkaline Phosphatase 71 U/L (45-117); Anion Gap 7 (5-15); BUN 19 mg/dL (7-18); BUN/Creat Ratio 16.8 RATIO (10-20); Calcium,Total 8.6 mg/dL (8.5-10.1); Chloride 107 mmol/L (98-107); Creatinine, Serum 1.13 mg/dL (0.70-1.30); EST Glomerular Filtration Rate 66 mL/min (>60); Est Glom Filt Rate - Afr Amer 80 mL/min (>60); Estimated Creatinine Clearance 50.44 ml/min; Globulin 3.8 g/dL (2.2-4.2); Glucose 73 mg/dL (74-106); Potassium 4.2 mmol/L (3.5-5.1); Protein, Total 7.2 g/dL (6.4-8.2); Sodium Level 141 mmol/L (136-145); Thyroid Stim Hormone (TSH) 1.42 uIU/mL (0.358-3.74); Troponin-I HS 9 pg/mL (3.0-78.0)
[2022-06-21 16:18] LABS: White Blood Cells 0-5 SEEN /hpf (0-5)
== END 2022-06-21 17:16 | disposition home or self-care (01) ==
PROVIDERS: Emergency Provider Emergency Medicine; PCP Internal Medicine; Visit Provider Emergency Medicine
DX: R53.1 Weakness (principal); I10 Essential (primary) hypertension; R00.1 Bradycardia, unspecified; Z87.891 Personal history of nicotine dependence; Z79.82 Long term (current) use of aspirin; Z79.899 Other long term (current) drug therapy
CPT/HCPCS: 71045; 80053; 81001; 84443; 84484; 85025; 93005; 96360; 96361; 99285; J7030; A4216

== ENCOUNTER → 2022-07-26 | Outpatient (CLI) | payer MEDICARE, SELFPAY | END | disposition home or self-care (01) | LOC: LAB 15:27 | PROVIDERS: PCP Internal Medicine; Referring Provider Internal Medicine Cardiovascular Disease; Visit Provider Internal Medicine Cardiovascular Disease | DX: I95.1 Orthostatic hypotension (principal); R00.1 Bradycardia, unspecified; R42 Dizziness and giddiness; R53.83 Other fatigue | CPT/HCPCS: 36415; 82533 ==

== ENCOUNTER → 2022-08-03 | Outpatient (CLI) | payer MEDICARE, SELFPAY ==
[2022-08-03 14:30] LABS: Anion Gap 4 (5-15); BUN 16 mg/dL (7-18); BUN/Creat Ratio 15.4 RATIO (10-20); Calcium,Total 8.5 mg/dL (8.5-10.1); Chloride 108 mmol/L (98-107); Creatinine, Serum 1.04 mg/dL (0.70-1.30); EST Glomerular Filtration Rate 73 mL/min (>60); Est Glom Filt Rate - Afr Amer 88 mL/min (>60); Glucose 88 mg/dL (74-106); Potassium 4.2 mmol/L (3.5-5.1); Sodium Level 140 mmol/L (136-145)
== END | disposition home or self-care (01) ==
LOC: LAB 13:12
PROVIDERS: PCP Internal Medicine; Referring Provider Internal Medicine Cardiovascular Disease; Visit Provider Internal Medicine Cardiovascular Disease
DX: I95.1 Orthostatic hypotension (principal); R00.1 Bradycardia, unspecified; R42 Dizziness and giddiness; R53.83 Other fatigue
CPT/HCPCS: 36415; 80048

== ENCOUNTER 2022-08-24 08:27 | Outpatient (CLI) | payer MEDICARE, SELFPAY ==
[2022-08-24 08:47] VITALS: BP 190/92; PULSE 46; RESP 16; TEMP 35.9; O2SAT 98; BMI 31.6
[2022-08-24] MEDS: Cosyntropin 0.25 MG Vial IM (09:02)
[2022-08-24 10:08] VITALS: BP 180/82; PULSE 41; RESP 16; TEMP 35.6; O2SAT 98
== END 2022-08-24 08:28 | disposition home or self-care (01) ==
LOC: MEDOUTP 08:28
PROVIDERS: PCP Internal Medicine; Referring Provider Internal Medicine Endocrinology, Diabetes & Metabolism; Visit Provider Internal Medicine Endocrinology, Diabetes & Metabolism
DX: R55 Syncope and collapse (principal)
CPT/HCPCS: 36415; 82533; 96372; J0834

== ENCOUNTER → 2022-11-17 | Outpatient (CLI) | payer MEDICARE, SELFPAY ==
--- NOTE | 2022-11-17 13:08 | CDU_ITS ---
Reason For Study: DIZZINESS Rt. Velocities/BP Lt. Velocities/BP Prox CCA 66.7/11.9 cm/sec. Prox CCA 125.8/27.0 cm/sec. Mid CCA 69.5/20.4 cm/sec. Mid CCA 78.1/16.7 cm/sec. Dist CCA 52.5/14.7 cm/sec. Dist CCA 59.7/13.0 cm/sec. Prox ICA 62.0/19.5 cm/sec. Prox ICA 61.3/19.5 cm/sec. Mid ICA 48.7/16.6 cm/sec. Mid ICA 69.9/25.7 cm/sec. Dist ICA 62.9/16.6 cm/sec. Dist ICA 45.4/15.3 cm/sec. Rt. ICA/CCA = 69.5/62.9=0.9. Lt. ICA/CCA = 69.9/78.1=0.9. Prox ECA 69.5/10.0 cm/sec. Prox ECA 80.9/13.4 cm/sec. Rt. Vert. 27.7/3.0 cm/sec. Lt. Vert. 37.4/13.9 cm/sec. Right Extracranial There is homogeneous, smooth atherosclerotic plaque noted in the right common carotid artery. There is homogeneous, irregular atherosclerotic plaque noted in the right internal carotid artery. There is homogeneous, smooth atherosclerotic plaque noted in the right external carotid artery. Antegrade flow is noted in the right vertebral artery. Left Extracranial There is homogeneous, smooth atherosclerotic plaque noted in the left common carotid artery. There is heterogeneous, smooth atherosclerotic plaque noted in the left internal carotid artery. There is intimal thickening but no significant atherosclerotic plaque noted in the left external carotid artery. Antegrade flow is noted in the left vertebral artery. Procedure Carotid Duplex 34930. This is a Carotid Duplex examination using B-mode, color flow and specral Doppler. The study was technically difficult. Exam performed in department. VL/Carotid Duplex Ultrasound Interpretation Summary Mild (<50%) stenosis right extracranial internal carotid. Mild (<50%) stenosis left extracranial internal carotid. Patent and antegrade vertebrals bilaterally Ordering Physician: Leonarda Lomax Referring Physician: Felton Portillo Performed By: Anca Sears, RACHELLE, RVT
== END | disposition home or self-care (01) ==
LOC: CVS 13:02
PROVIDERS: PCP Internal Medicine; Referring Provider Surgery Trauma Surgery; Visit Provider Surgery Trauma Surgery
DX: R42 Dizziness and giddiness (principal)
CPT/HCPCS: 93880

== ENCOUNTER 2023-01-17 15:11 | Emergency (ER) | payer MEDICARE, SELFPAY ==
[2023-01-17 15:12] VITALS: BP 174/108; PULSE 53; RESP 16; TEMP 36.6; O2SAT 100; BMI 31.4
--- NOTE | 2023-01-17 15:30 | CT_ITS ---
EXAMINATION : Head CT w/out contrast HISTORY : dizziness COMPARISON : None. TECHNIQUE : Multiple contiguous axial images were obtained from the skull base to the vertex without intravenous contrast. A radiation dose optimization technique was used for this scan. FINDINGS : There is no evidence for acute intracranial hemorrhage, mass effect, or midline shift. There is no extra-axial fluid collection. There are periventricular white matter changes consistent with chronic microvascular ischemic disease. There is sulcal widening and ventricular enlargement consistent with cerebral atrophy. There is normal rogers-white differentiation, without CT evidence of acute ischemia or infarct. The skull base and calvarium are unremarkable. The orbits are unremarkable. The paranasal sinuses are clear. The mastoid air cells are well-aerated. The soft tissues are unremarkable. CT/Brain/Head without Contrast IMPRESSION: No acute intracranial abnormality. Chronic involutional and ischemic changes of the brain. Electronically Signed: Ramy Salvador MD at 16:26 EST ,
--- NOTE | 2023-01-17 15:35 | EX.ED.DYSGE1 ---
HPI History of Present Illness Chief Complaint: Dizziness Informant: patient and spouse/S.O. Onset/Context/Timing Onset: Days Context: Gradual Onset Timing: Continuous Current Severity: Mild Maximum Severity: Mild Narrative Narrative: 82-year-old male history of asthma and hypertension. States that he has had episodes of dizziness or lightheadedness after he uses inhaler but he has had 1 continue constantly now since yesterday. He denies any headache. He denies any head trauma. No LOC. No chest pain. No shortness of breath. No abdominal pain. Denies recent illness. No nausea, vomiting or diarrhea. No fever or chills. No shortness of breath. No unilateral weakness. Nothing particular makes it better or worse. He denies any room spinning or vertiginous symptoms. Prior similar symptoms: Yes Recent Illness/Hospitalization: No PFSH PFSH Medical History Asthma Chest pain COVID-19 Dizzy WILSON (dyspnea on exertion) Essential hypertension Fatigue Hypotension Lightheaded Orthostatic hypotension Pre-syncope Sinus bradycardia Symptomatic bradycardia Home Medications aspirin 81 mg chewable tablet 81 mg PO DAILY@0800 health maintenance 11/15/16 [History Last Taken 11/15/16] omeprazole 40 mg capsule,delayed release 40 mg PO DAILY 05/28/18 [History Last Taken Unknown] albuterol sulfate 90 mcg/actuation aerosol inhaler 2 puff inhalation Q4H PRN 09/01/22 [History Last Taken Unknown] budesonide-formoterol HFA 160 mcg-4.5 mcg/actuation aerosol inhaler 2 puff inhalation BID 11/14/22 [History Last Taken Unknown] Allergy/AdvReac Type Severity Reaction Status Date / Time amoxicillin Allergy Unknown Verified 01/17/23 15:12 lisinopril [From Zestril] Allergy Unknown Verified 01/17/23 15:12 suture Allergy Swelling Verified 01/17/23 15:12 azithromycin AdvReac constipatio Verified 01/17/23 15:12 n Family History Father CAD (coronary artery disease) CVA (cerebral vascular accident) Myocardial infarction Sister Heart disease Sister Heart disease Surgical History S/P skin biopsy Social History household members: spouse Smoking Status: Former smoker alcohol intake: never substance use type: does not use ROS ROS ED ROS Narrative Denies recent illness. Review of Systems ROS Unobtainable: Denies due to encephalopathy Constitutional Constitutional ED: Denies chills or fever(s) Eyes Eyes: Denies blurry vision ENT ENT ED: Denies ear pain Cardiovascular Cardiovascular: Denies chest pain Respiratory/Chest Respiratory/Chest: Denies cough or dyspnea Gastrointestinal Gastrointestinal: Denies abdominal pain Genitourinary Genitourinary ED: Denies dysuria or hematuria Musculoskeletal Musculoskeletal: Denies arthralgias Integumentary Denies abscess Neurologic Neurologic: Denies headache(s) Psychiatric Psychiatric: Denies anxiety Endocrine Endocrinology: Denies cold intolerance Hematologic/Lymphatic Hematologic/Lymphatic: Reports none Allergic/Immunologic Allergic/Immunologic ED: Denies mouth swelling, tongue swelling or urticaria EXAM Physical Exam Narrative Exam Narrative: 82-year-old male accompanied by family. Vital signs are stable and afebrile. Initial blood pressure is 174 108. Pulse ox is under percent on room air no signs hypoxia. He is in no distress. HEENT exam unremarkable. Normal speech. Pupils round reactive light. No facial droop. Neck nontender. Lungs clear equal symmetrical. Heart regular rhythm rate about 55 no murmur. Chest wall and ribs nontender. Abdomen soft nontender. Moving all 4 extremities. 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 Dorsi plantarflexion intact. Calves are nontender. No edema. Back nontender. Neurologically he is awake and alert with no focal motor deficits. NIH is 0. Patient has bilateral hearing aids. His eardrums and ear canals are normal. No cerumen impaction. Const Vital Signs: 01/17/23 15:12 01/17/23 15:32 Temperature 98 F Temperature Source Temporal Pulse Rate 53 L Respiratory Rate 16 Respiratory Pattern Normal Blood Pressure 174/108 H Blood Pressure Mean 130 Pulse Ox 100 Oxygen Delivery Method Room Air Positive well nourished and well developed; Negative for cachectic, contractures or unkempt General Appearance ED: well developed and NAD; Negative for unkempt, cachectic, contractures, cyanotic, diaphoretic or pallor Nutritional Appearance: Negative for cachectic HEENT Reports moist mucous membranes; Denies dry mucous membranes Negative for trauma or tenderness Mouth ED: No dry mucous membranes Mouth: No dry mucous membranes Eyes PERRL and EOMs intact bilaterally General Eye ED: Negative for pale conjunctiva, scleral icterus or other Neck no lymphadenopathy, supple and no JVD General: Negative for tenderness Lymph Lymphatic: Negative for other Chest Wall inspection of chest normal and palpation of chest normal Chest: Negative for other Resp normal respiratory effort and clear to auscultation bilaterally Effort and Inspection: Negative for retractions Auscultation: Negative for rales, rhonchi or wheezes Cardio regular rhythm, S1 normal heart sound, S2 normal heart sound and no murmurs; Negative for regular rate Rate: bradycardia GI normal to inspection, nondistended, normoactive bowel sounds, non-tender, non-distended and no masses Inspection: Negative for abdominal distention Auscultation: normoactive bowel sounds Palpation: soft; Negative for tender or guarding Back/Spine no CVA tenderness General Back: Negative for CVA tenderness Cervical Spine: Negative for cervical spine tenderness Thoracic Spine / Upper Back: Negative for thoracic spinal tenderness or paraspinal muscle tenderness Lumbar Spine / Lower Back: Negative for lumbar spinal tenderness Extremity normal to inspection General Extremety ED: Negative for edema or tenderness General Extremity: Negative for edema Neuro oriented x3 and CN's II-XII intact bilaterally Sensorium / Orientation: alert; Negative for orientation impaired, lethargic or stuporous Motor Exam: strength 5/5 throughout Psych mental status grossly normal Appearance: Negative for unkempt Attitude: No agitated Mood & Affect: Negative for depressed, anxious or tearful Skin no rashes or lesions noted, no wounds and skin turgor normal General Skin Exam: elasticity normal; Negative for jaundice or pallor Lesions: No lesion noted Rashes: No rashes noted Trauma: Negative for abrasion Wounds: Negative for wounds noted MDM MDM MDM Narrative Medical decision making narrative: 82-year-old male complaining of dizziness. Benign exam lying in bed. Clinically does not sound like vertigo. Differential would include acute neurologic event but no signs of stroke on exam. NIH is 0. Anemia. Dehydration. Electrolyte abnormalities etc. CAT scan labs are being obtained. Anthony exam at 5:00 patient is doing well. Exam unchanged. We went over all his test results and also that of his CAT scan and chest x-ray. We do not have a specific cause of his symptoms. Discharged home with outpatient follow-up. Nurses are going to obtain orthostatic vital signs prior to discharge. History & Record Review Discussion w/independent historian: Patient Additional record(s) reviewed:: Prior inpatient record, Prior outpatient record, Prior ED visit and Prior labs Lab Data Attestation: I reviewed the patient's lab results. Lab results narrative: CBC unremarkable. White count is 7. H&H of 14 and 45. Platelets just below normal at 133. The thrombocytopenia is chronic. Electrolytes show a gap of 2 normal BUN of 18 creatinine 1.1. Glucose 84. Troponin 8. Chest x-ray chronic changes. CAT scan of the brain chronic changes. Labs: Laboratory Results - last 24 hr 01/17/23 15:45 WBC 7.0 RBC 4.70 Hgb 14.1 Hct 45.0 MCV 95.7 H MCH 30.0 MCHC 31.3 L RDW Std Deviation 43.9 RDW Coeff of Sudeep 12.4 Plt Count 133 L MPV 10.5 Immature Gran % (Auto) 0.600 Neut % (Auto) 69.8 Lymph % (Auto) 18.5 L Randall % (Auto) 9.8 Eos % (Auto) 0.7 Baso % (Auto) 0.6 Absolute Neuts (auto) 4.9 Absolute Lymphs (auto) 1.29 Nucleated RBC % 0 Sodium 138 Potassium 4.3 Chloride 108 H Carbon Dioxide 28.0 Anion Gap 2 L BUN 18 Creatinine 1.14 Estim Creat Clear Calc 50.00 Est GFR (MDRD) Af Amer 79 Est GFR (MDRD) Non-Af 66 BUN/Creatinine Ratio 15.8 Glucose 84 Calcium 8.7 Troponin I High Sens 8 Radiography Diagnostic Testing: Clinical Impression(s) from Imaging Studies Brain CT 01/17/23 15:30 IMPRESSION: No acute intracranial abnormality. Chronic involutional and ischemic changes of the brain. Electronically Signed: Ramy Salvador MD at 16:26 EST , Chest X-Ray 01/17/23 16:12 IMPRESSION: No acute radiographic abnormalities. Electronically Signed: Ramy Salvador MD at 16:28 EST , Discharge Plan Triage Chief Complaint: Dizziness ED Provider: León Orellana Dx/Rx/DC Orders Clinical Impression: Dizziness of unknown etiology Instructions: ED Dizziness, Uncertain Cause Prescriptions: No Action omeprazole 40 mg capsule,delayed release(DR/EC) 40 mg PO DAILY albuterol sulfate 90 mcg/actuation HFA aerosol inhaler 2 puff inhalation Q4H PRN budesonide-formoterol 160-4.5 mcg/actuation HFA aerosol inhaler 2 puff inhalation BID aspirin 81 MG tablet,chewable 81 mg PO DAILY@0800 Hold Instructions: due to bruising Primary Care Provider: Felton Portillo Referrals: Felton Portillo MD [Primary Care Provider] - 1 Week Activity Restrictions/Additional Instructions: Follow-up with your primary care physician. Nothing particularly bad we can find today on any your tests. I do not have a specific cause for your dizziness. Disposition Disposition: Home, Self Care
[2023-01-17 16:07] LABS: Absolute Lymphocyte Count 1.29 X10^3/uL (0.83-4.51); Absolute Neutrophil Count 4.9 X10^3/uL (2.0-7.7); Basophil# 0.04 X10^3/uL; Basophil% 0.6 % (0-1); Eosinophil# 0.05 X10^3/uL; Eosinophils% 0.7 % (0-5); Hemoglobin 14.1 g/dL (13.0-16.5); Lymphocyte # 1.29 X10^3/ul (0.83-4.51); Lymphocyte % 18.5 % (19-41); Mean Corp Hgb Conc 31.3 g/dL (32-36); Mean Corpuscular Volume 95.7 fL (80-94); Mean Platelet Vol. 10.5 fl (6.2-12.0); Monocyte# 0.68 X10^3/uL; Monocyte% 9.8 % (0-10); NRBC Flagged by Analyzer 0 % (0-5); Neutrophil # 4.87 X10^3/uL (2.7-7.7); Neutrophil % 69.8 % (47-70); Platelet Count 133 K/mm3 (150-450); RBC Distribution Width CV 12.4 % (11.6-14.6); RBC Distribution Width SD 43.9 fl (35.1-43.9)
[2023-01-17 16:09] LABS: Anion Gap 2 (5-15); BUN 18 mg/dL (7-18); BUN/Creat Ratio 15.8 RATIO (10-20); Calcium,Total 8.7 mg/dL (8.5-10.1); Chloride 108 mmol/L (98-107); Creatinine, Serum 1.14 mg/dL (0.70-1.30); EST Glomerular Filtration Rate 66 mL/min (>60); Est Glom Filt Rate - Afr Amer 79 mL/min (>60); Glucose 84 mg/dL (74-106); Potassium 4.3 mmol/L (3.5-5.1); Sodium Level 138 mmol/L (136-145); Troponin-I HS 8 pg/mL (3.0-78.0)
--- NOTE | 2023-01-17 16:12 | RAD_ITS ---
INDICATION: dizziness EXAMINATION/TECHNIQUE: X-RAY - XR Chest 1 View COMPARISON: 06/21/2022. FINDINGS: The lungs are clear. Tortuous and calcified thoracic aorta. The heart is mildly enlarged. No pleural effusion or pneumothorax. Degenerative changes of the thoracic spine. RAD/Chest 1 View (Portable) IMPRESSION: No acute radiographic abnormalities. Electronically Signed: Ramy Salvador MD at 16:28 EST ,
[2023-01-17 17:27] VITALS: BP 147/88; BP 179/99; BP 180/100; PULSE 51; PULSE 57; PULSE 63
== END 2023-01-17 18:04 | disposition home or self-care (01) ==
PROVIDERS: Emergency Provider Emergency Medicine; PCP Internal Medicine; Referring Provider Emergency Medicine; Visit Provider Emergency Medicine
DX: R42 Dizziness and giddiness (principal); I10 Essential (primary) hypertension; Z87.891 Personal history of nicotine dependence; J45.909 Unspecified asthma, uncomplicated; Z79.51 Long term (current) use of inhaled steroids; Z79.82 Long term (current) use of aspirin
CPT/HCPCS: 70450; 71045; 80048; 84484; 85025; 93005; 99282

== ENCOUNTER 2023-07-26 14:33 | Emergency (ER) | payer MEDICARE, SELFPAY ==
[2023-07-26 14:33] VITALS: BP 204/109; PULSE 55; RESP 17; TEMP 36.6; O2SAT 97
--- NOTE | 2023-07-26 15:07 | EKG12_ITS ---
Test Reason : Blood Pressure : / mmHG Vent. Rate : 055 BPM Atrial Rate : 055 BPM P-R Int : 166 ms QRS Dur : 106 ms QT Int : 462 ms P-R-T Axes : -04 015 021 degrees QTc Int : 441 ms Sinus bradycardia Nonspecific ST abnormality Abnormal ECG Confirmed by ANGIE BUSTOS, TAL ([id number]), commissioning editor TAMIE JUAREZ ([id number]) on 07/30/2023 9:29:53 AM Referred By: Confirmed By:TAL ADAMS MD
--- NOTE | 2023-07-26 15:08 | EDS_ITS ---
HPI History of Present Illness Chief Complaint: Hypertension Informant: patient, spouse/S.O. and family Onset/Context/Timing Onset: Today Context: Gradual Onset Timing: Continuous Maximum Severity: Mild Narrative Narrative: 83-year-old male with history of hypotension on hydrocortisone to keep his pressure up also evaluating for Parkinson's disease. Today he is having an echocardiogram he had elevated blood pressure. He was sent to the ER for evaluation. He and his family at bedside denies any recent illness or hospitalization. Patient has constant dizziness that is not new. He denies any headache or chest pain. Denies any recent vomiting or diarrhea. Prior similar symptoms: No Recent Illness/Hospitalization: No PFSH PFS Medical History (Updated 07/26/23 @ 16:[address] León Orellana MD) Parkinson disease Memory loss Pre-syncope Orthostatic hypotension Symptomatic bradycardia Lightheaded Dizzy Chest pain Fatigue WILSON (dyspnea on exertion) Asthma COVID-19 Essential hypertension Hypotension Sinus bradycardia Home Medications ?Medication ?Instructions ?Recorded ?Last Taken ?Type omeprazole 40 mg capsule,delayed 40 mg PO DAILY 05/28/18 Unknown History release fludrocortisone 0.1 mg tablet 0.05 mg PO MOWEFR 06/14/23 Unknown History tamsulosin 0.4 mg capsule 0.4 mg PO BID 06/14/23 Unknown History Allergy/AdvReac Type Severity Reaction Status Date / Time amoxicillin Allergy Unknown Verified 06/14/23 14:11 lisinopril (From Zestril) Allergy Unknown Verified 06/14/23 14:11 suture Allergy Swelling Verified 06/14/23 14:11 azithromycin AdvReac constipatio Verified 06/14/23 14:11 n Family History Father CAD (coronary artery disease) CVA (cerebral vascular accident) Myocardial infarction Sister Heart disease Sister Heart disease Surgical History S/P skin biopsy Social History household members: spouse Smoking Status: Former smoker alcohol intake: never substance use type: does not use ROS ROS ED ROS Narrative Denies any recent illness. Review of Systems ROS Unobtainable: Denies due to encephalopathy Constitutional Constitutional ED: Denies chills or fever(s) Eyes Eyes: Denies blurry vision Cardiovascular Cardiovascular: Denies chest pain Respiratory/Chest Respiratory/Chest: Denies cough or dyspnea Gastrointestinal Gastrointestinal: Denies abdominal pain, constipation, diarrhea, melena, nausea or vomiting Genitourinary Genitourinary ED: Denies dysuria or hematuria Musculoskeletal Musculoskeletal: Denies arthralgias Integumentary Denies abscess Neurologic Neurologic: Denies headache(s) Psychiatric Psychiatric: Denies anxiety or depression Endocrine Endocrinology: Denies cold intolerance Hematologic/Lymphatic Hematologic/Lymphatic: Reports none Allergic/Immunologic Allergic/Immunologic ED: Denies mouth swelling, tongue swelling or urticaria EXAM Physical Exam Narrative Exam Narrative: 83-year-old male no acute distress vital signs stable. Heart rate of 55 he has a chronic low heart rate often as low as 40. Blood pressure 204/109. He does not look septic or toxic. He is in no distress. Family is at bedside. H EENT exam unremarkable. Moist weeks membranes. No droop. Normal speech. Neck nontender. No lymphadenopathy. Lungs clear to auscultation bilateral. Heart regular rhythm rate about 60 no murmur. Chest wall ribs nontender. Abdomen soft nontender. Back nontender. Moving all 4 extremities. 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 Dorsi plantarflexion intact. Calves nontender. Neurologically he is awake and alert no focal motor deficits. Answering questions following commands. Const Vital Signs: 07/26/23 14:33 07/26/23 15:28 Temperature 97.9 F Temperature Source Temporal Pulse Rate 55 L Respiratory Rate 17 Respiratory Effort Normal Non-Labored Respiratory Pattern Normal Blood Pressure 204/109 H Blood Pressure Mean 140 Pulse Ox 97 Oxygen Delivery Method Room Air Positive well nourished and well developed; Negative for cachectic, contractures or unkempt General Appearance ED: well developed and NAD; Negative for unkempt, cachectic, contractures, cyanotic, diaphoretic or pallor Nutritional Appearance: Negative for cachectic HEENT Reports moist mucous membranes; Denies dry mucous membranes Negative for trauma or tenderness Mouth ED: No dry mucous membranes Mouth: No dry mucous membranes Eyes PERRL and EOMs intact bilaterally General Eye ED: Negative for pale conjunctiva, scleral icterus or other Neck no lymphadenopathy, supple and no JVD General: Negative for tenderness Lymph Lymphatic: Negative for other Chest Wall inspection of chest normal and palpation of chest normal Chest: Negative for other Resp normal respiratory effort and clear to auscultation bilaterally Effort and Inspection: Negative for retractions Auscultation: Negative for rales, rhonchi, wheezes or diminished lung sounds Cardio regular rate, regular rhythm, S1 normal heart sound, S2 normal heart sound and no murmurs Palpation: Negative for palpable S3 or palpable S4 Rate: Negative for bradycardia, tachycardic or other Rhythm: Negative for abnormal rhythm GI normal to inspection, nondistended, normoactive bowel sounds, non-tender, non-d istended and no masses Inspection: Negative for abdominal distention Auscultation: normoactive bowel sounds Palpation: soft; Negative for tender, guarding or rebound tenderness present Back/Spine no CVA tenderness General Back: Negative for CVA tenderness Cervical Spine: Negative for cervical spine tenderness Thoracic Spine / Upper Back: Negative for thoracic spinal tenderness or paraspinal muscle tenderness Lumbar Spine / Lower Back: Negative for lumbar spinal tenderness Extremity normal to inspection General Extremety ED: Negative for edema or tenderness General Extremity: Negative for edema Neuro oriented x3 and CN's II-XII intact bilaterally Sensorium / Orientation: alert and orientation impaired; Negative for lethargic or stuporous Motor Exam: strength 5/5 throughout; Negative for general weakness or strength abnormal Psych mental status grossly normal Appearance: Negative for unkempt Attitude: No agitated Mood & Affect: Negative for depressed, anxious or tearful Skin no rashes or lesions noted, no wounds and skin turgor normal General Skin Exam: elasticity normal; Negative for jaundice or pallor Lesions: No lesion noted Rashes: No rashes noted Trauma: Negative for abrasion Wounds: Negative for wounds noted MDM MDM MDM Narrative Medical decision making narrative: 83-year-old male elevated blood pressure. History of hypotension for which he is on hydrocortisone. Exam benign. Screening labs and EKG will be obtained. Repeat exam at 3:55 PM patient doing well. Current blood pressure 155/86. Patient doing well. The patient and his and I spoke they are comfortable to him being discharged home. Outpatient follow-up as needed. They check his blood pressures daily. History & Record Review Discussion w/independent historian: Patient and Family Lab Data Attestation: I reviewed the patient's lab results. Lab results narrative: CBC shows a white count of 6. H&H 14 and 45. Platelets slightly low at 140,000. Patient has had low platelets before. Chemistries show gap 2. BUN of 19 creatinine of 1. Glucose 86. Labs: Laboratory Results - last 24 hr 07/26/23 15:25 WBC 6.4 RBC 4.93 Hgb 14.8 Hct 45.1 MCV 91.5 MCH 30.0 MCHC 32.8 RDW Std Deviation 42.2 RDW Coeff of Sudeep 12.6 Plt Count 140 L MPV 10.4 Immature Gran % (Auto) 0.500 Neut % (Auto) 64.1 Lymph % (Auto) 24.7 [place] % (Auto) 9.3 Eos % (Auto) 1.1 Baso % (Auto) 0.3 Absolute Neuts (auto) 4.1 Absolute Lymphs (auto) 1.59 Nucleated RBC % 0 Sodium 138 Potassium 4.2 Chloride 107 Carbon Dioxide 29.0 Anion Gap 2 L BUN 19 H Creatinine 1.06 Est GFR (MDRD) Af Amer 86 Est GFR (MDRD) Non-Af 71 BUN/Creatinine Ratio 17.9 Glucose 86 Calcium 9.2 Rhythm Strip Rhythm Strip: Sinus bradycardia Rate: 55 Ectopy: None EKG Initial EKG: Attestation: I personally reviewed and interpreted this EKG as follows: Interpretation: Sinus Rhythm, No Acute Injury Pattern and Sinus Bradycardia Comments: Sinus bradycardia rate of 55 no acute signs of SD or ischemia. NC interval 166. Discharge Plan Triage Chief Complaint: Hypertension ED Provider: León Orellana Dx/Rx/DC Orders Clinical Impression: Elevated blood pressure reading, History of hypotension Prescriptions: No Action omeprazole 40 mg capsule,delayed release(DR/EC) 40 mg PO DAILY fludrocortisone 0.1 mg tablet 0.05 mg PO MOWEFR Patient Comments: TAKE 1/2 TABLET (0.05 MG) ORALLY SUNDAY, SUNDAY, SUNDAY tamsulosin 0.4 mg capsule 0.4 mg PO BID Primary Care Provider: Felton Portillo Referrals: Felton Portillo MD [Primary Care Provider] - As Needed Activity Restrictions/Additional Instructions: Your labs and EKG checked out fine. Take your blood pressure daily as you have been doing. If they continue to run elevated follow-up with your doctor. Continue your current medications. Print Language: Filipino Disposition Disposition: Home, Self Care
[2023-07-26 15:31] LABS: Absolute Lymphocyte Count 1.59 X10^3/uL (0.83-4.51); Absolute Neutrophil Count 4.1 X10^3/uL (2.0-7.7); Basophil# 0.02 X10^3/uL; Basophil% 0.3 % (0-1); Eosinophil# 0.07 X10^3/uL; Eosinophils% 1.1 % (0-5); Hematocrit 45.1 % (40-54); Hemoglobin 14.8 g/dL (13.0-16.5); Lymphocyte # 1.59 X10^3/ul (0.83-4.51); Lymphocyte % 24.7 % (19-41); Mean Corp Hgb Conc 32.8 g/dL (32-36); Mean Corpuscular Volume 91.5 fL (80-94); Mean Platelet Vol. 10.4 fl (6.2-12.0); Monocyte% 9.3 % (0-10); NRBC Flagged by Analyzer 0 % (0-5); Neutrophil # 4.13 X10^3/uL (2.7-7.7); Neutrophil % 64.1 % (47-70); Platelet Count 140 K/mm3 (150-450); RBC Distribution Width CV 12.6 % (11.6-14.6); RBC Distribution Width SD 42.2 fl (35.1-43.9); Red Blood Count 4.93 M/mm3 (4.6-6.2); White Blood Count 6.4 K/mm3 (4.4-11.0)
[2023-07-26 15:45] LABS: Anion Gap 2 (5-15); BUN 19 mg/dL (7-18); BUN/Creat Ratio 17.9 RATIO (10-20); Calcium,Total 9.2 mg/dL (8.5-10.1); Chloride 107 mmol/L (98-107); Creatinine, Serum 1.06 mg/dL (0.70-1.30); EST Glomerular Filtration Rate 71 mL/min (>60); Est Glom Filt Rate - Afr Amer 86 mL/min (>60); Glucose 86 mg/dL (74-106); Potassium 4.2 mmol/L (3.5-5.1); Sodium Level 138 mmol/L (136-145)
[2023-07-26 15:53] VITALS: BP 155/86; PULSE 51; RESP 17; O2SAT 96
[2023-07-26 16:02] VITALS: BP 174/101; PULSE 50; RESP 17; TEMP 36.7; O2SAT 97
== END 2023-07-26 16:06 | disposition home or self-care (01) ==
PROVIDERS: Emergency Provider Emergency Medicine; PCP Internal Medicine; Visit Provider Emergency Medicine
DX: R03.0 Elevated blood-pressure reading, without diagnosis of hypertension (principal); Z87.891 Personal history of nicotine dependence; I95.9 Hypotension, unspecified; I10 Essential (primary) hypertension; Z79.51 Long term (current) use of inhaled steroids
CPT/HCPCS: 80048; 85025; 93005; 99284; A4216

== ENCOUNTER → 2023-07-26 | Outpatient (CLI) | payer MEDICARE, SELFPAY ==
--- NOTE | 2023-07-26 13:13 | ECHOD_ITS ---
Reason For Study: CAD/ASHD Procedure This was a 2D Doppler, Color Flow transthoracic echocardiogram. Exam performed in department. Left Ventricle Normal size and thickness. The left ventricular ejection fraction is 65 %. At least grade 1 diastolic dysfunction. Right Ventricle Normal right ventricle. Atria The left and right atria are normal. Mitral Valve Mild (1+) mitral valve insufficiency. Tricuspid Valve Normal tricuspid valve. Aortic Valve Trisinus/trileaflet aortic valve. Pulmonic Valve Mild (1+) pulmonic valve insufficiency. Great Vessels Mildly dilated aortic root. Pericardium/Pleural No pericardial effusion. MMode/2D Measurements & Calculations LVIDd: 5.2 cm IVSd: 1.1 cm Ao root diam: 3.7 cm LVIDs: 4.1 cm LVPWd: 0.95 cm RVDd: 4.1 cm FS: 21.6 % LAV(MOD-bp): 93.8 ml LVAd ap4: 32.0 cm2 SV(MOD-sp4): 47.1 ml LAV(MOD-bp) Indexed: 45.6 ml/m2 LVLd ap4: 8.9 cm LAV(MOD-sp2): 95.8 ml EDV(MOD-sp4): 95.8 ml LAV(MOD-sp4): 87.1 ml EDV(sp4-el): 97.8 ml LVAs ap4: 20.4 cm2 LVLs ap4: 7.6 cm ESV(MOD-sp4): 48.6 ml ESV(sp4-el): 46.4 ml EF(MOD-sp4): 49.2 % EF(sp4-el): 52.6 % SV(sp4-el): 51.4 ml LA A4 area: 26.9 cm2 RA A4 area: 17.8 cm2 TAPSE: 2.3 cm Time Measurements MV dec time: 0.13 sec Doppler Measurements & Calculations MV E max elver: 45.7 cm/sec Lat Peak E' Elver: 4.2 cm/sec Med Peak E' Elver: 4.5 cm/sec MV A max elver: 75.1 cm/sec E/E' lat: 10.9 E/E' med: 10.1 MV E/A: 0.61 MV V2 max: 90.6 cm/sec MV P1/2t max elver: 53.1 cm/sec Ao V2 max: 120.9 cm/sec MV max P.3 mmHg MV P1/2t: 69.0 msec Ao max P.8 mmHg MV V2 mean: 41.0 cm/sec MV dec slope: 225.6 cm/sec2 Ao V2 mean: 79.9 cm/sec MV mean P.80 mmHg Ao mean P.0 mmHg MV V2 VTI: 25.6 cm MVA(P1/2t): 3.2 cm2 Ao V2 VTI: 28.5 cm AV (velocity ratio): 0.80 LV V1 max: 94.0 cm/sec PA V2 max: 91.8 cm/sec PI dec slope: 154.9 cm/sec2 LV V1 max P.5 mmHg LV V1 mean P.0 mmHg LV V1 mean: 68.1 cm/sec LV V1 VTI: 22.8 cm ECHO/Echo Complete Interpretation Summary The left ventricular ejection fraction is 65 %. At least grade 1 diastolic dysfunction. Mild (1+) mitral valve insufficiency. Mild (1+) pulmonic valve insufficiency. Mildly dilated aortic root. Ordering Physician: Leonarda Lomax Referring Physician: Leonarda Lomax Performed By: Poncho Farrell and Student
== END | disposition home or self-care (01) ==
LOC: CVS 13:12
PROVIDERS: PCP Internal Medicine; Referring Provider Internal Medicine Cardiovascular Disease; Visit Provider Internal Medicine Cardiovascular Disease
DX: R06.09 Other forms of dyspnea (principal); I10 Essential (primary) hypertension; I95.1 Orthostatic hypotension
CPT/HCPCS: 93306

== ENCOUNTER 2023-11-08 15:33 | Emergency (ER) | payer MEDICARE, SELFPAY ==
[2023-11-08 15:34] VITALS: BP 156/106; BP 161/102; PULSE 50; PULSE 56; RESP 12; RESP 14; TEMP 36.1; O2SAT 98; BMI 31.0
--- NOTE | 2023-11-08 16:03 | EKG12_ITS ---
Test Reason : REPEAT Blood Pressure : / mmHG Vent. Rate : 046 BPM Atrial Rate : 046 BPM P-R Int : 214 ms QRS Dur : 108 ms QT Int : 474 ms P-R-T Axes : 053 016 079 degrees QTc Int : 414 ms Sinus bradycardia with 1st degree A-V block Nonspecific ST and T wave abnormality Abnormal ECG Confirmed by ANGIE BUSTOS, TAL ([id number]), web editor TAMIE JUAREZ ([id number]) on 11/09/2023 2:55:18 PM Referred By: Confirmed By:TAL ADAMS MD
[2023-11-08 16:05] VITALS: O2SAT 97
--- NOTE | 2023-11-08 16:06 | EDS_ITS ---
HPI <SURY Mendoza - Last Filed: 11/08/23 19:12> History of Present Illness Chief Complaint: Chest Other Narrative Narrative: Patient is an 83-year-old male with history of CAD, Parkinson disease, chronic dizziness, bradycardia who presents to the emergency department for ongoing pain to the chest. Patient states that the pain is more of a burning sensation. It has been there since July which is up a total of 2 to 3 months. Patient did see his PCP today, they did do an EKG, they thought they saw some EKG changes and referred him to the emergency department for ongoing evaluation. Patient denies any fever chills nausea or vomiting. Pay states the pain, and goes. PFSH <SURY Mendoza - Last Filed: 11/08/23 19:12> PFS Medical History Parkinson disease Memory loss Pre-syncope Orthostatic hypotension Symptomatic bradycardia Lightheaded Dizzy Chest pain Fatigue WILSON (dyspnea on exertion) Asthma COVID-19 Essential hypertension Hypotension Sinus bradycardia Home Medications ?Medication ?Instructions ?Recorded ?Last Taken ?Type tamsulosin 0.4 mg capsule 0.4 mg PO BID 06/14/23 Unknown History carbidopa 25 mg-levodopa 100 mg 1 tab PO BID 09/14/23 Unknown History tablet droxidopa 100 mg capsule 100 mg PO DAILY 09/14/23 Unknown History omeprazole 40 mg capsule,delayed 40 mg PO DAILY 09/14/23 Unknown History release Allergy/AdvReac Type Severity Reaction Status Date / Time amoxicillin Allergy Unknown Verified 11/08/23 15:34 lisinopril (From Zestril) Allergy Unknown Verified 11/08/23 15:34 suture Allergy Swelling Verified 11/08/23 15:34 azithromycin AdvReac constipatio Verified 11/08/23 15:34 n Family History Father CAD (coronary artery disease) CVA (cerebral vascular accident) Myocardial infarction Sister Heart disease Sister Heart disease Surgical History S/P skin biopsy Social History household members: spouse Smoking Status: Former smoker alcohol intake: never substance use type: does not use ROS <SURY Mendoza - Last Filed: 11/08/23 19:12> ROS ED ROS Narrative Constitutional: Negative for fever, chills, weight loss, weakness Eyes: Negative for vision loss, vision change, double vision ENT: Negative for any sore throat, ear pain, congestion Cardiovascular: Negative for any tightness, palpitations. Positive chest pain, chest burning Respiratory: Negative for any cough, sputum production, hemoptysis, dyspnea, dyspnea on exertion, orthopnea Gastrointestinal: Negative for any abdominal pain, nausea, vomiting, diarrhea, constipation, blood in stool, blood in vomit : Negative for any urinary frequency, dysuria, retention, blood in urine Muscle skeletal: Negative for any neck pain, back pain Neurological: Negative for any headache, syncope, dizziness Skin: Negative for any rashes, itching, abrasions, lacerations Psychiatric: Negative for any depression, anxiety, stress, suicidal ideation, homicidal ideation Hematologic: Negative for any excessive bruising, easy bleeding EXAM <SURY Mendoza - Last Filed: 11/08/23 19:12> Physical Exam Narrative Exam Narrative: Vital signs reviewed. HEET: Head normocephalic atraumatic, TMs clear bilaterally. Posterior pharynx is clear, moist mucous membranes. Nares clear bilaterally. Neck: Supple with no lymphadenopathy or tenderness. No signs of meningismus. Cardiac: Regular rate and rhythm no murmurs gallops or rubs, equal peripheral pulses bilaterally. Respiratory: Lungs clear to auscultation bilaterally. No chest tenderness. Abdomen: Soft, nontender, nondistended. No abdominal bruit or pulsatile masses. No hepatosplenomegaly Extremities: No peripheral edema, no signs of gross trauma or deformity. Active full range of motion of all extremities. Neuro: Cranial nerves II through XII intact, no focal neurological deficits. Skin: Clean dry and intact with no rash, purpura, petechiae, vesicles or pustules. Backs/flank: No CVA tenderness, no midline spinal tenderness, no deformity. Psych: Normal mood and affect. No SI, HI or acute psychosis. Const Vital Signs: 11/08/23 15:34 11/08/23 15:34 11/08/23 15:50 Temperature 96.9 F L Temperature Source Temporal Pulse Rate 50 L 56 L Respiratory Rate 12 14 Respiratory Effort Normal Blood Pressure 156/106 H 161/102 H Blood Pressure Mean 122 121 Pulse Ox 98 98 Oxygen Delivery Method Room Air Room Air 11/08/23 16:05 11/08/23 17:25 11/08/23 18:56 Temperature Temperature Source Pulse Rate 44 L 50 L Respiratory Rate 16 16 Respiratory Effort Blood Pressure 183/104 H 170/99 H Blood Pressure Mean 130 122 Pulse Ox 97 97 95 Oxygen Delivery Method Room Air Room Air Room Air 11/08/23 19:41 Temperature 98.0 F Temperature Source Pulse Rate 57 L Respiratory Rate 18 Respiratory Effort Blood Pressure 170/90 H Blood Pressure Mean 116 Pulse Ox 97 Oxygen Delivery Method Positive well nourished and well developed General Appearance ED: well developed <Dr. Jose Grimaldo DO - Last Filed: 11/08/23 23:53> Physical Exam Const Vital Signs: 11/08/23 15:34 11/08/23 15:34 11/08/23 15:50 Temperature 96.9 F L Temperature Source Temporal Pulse Rate 50 L 56 L Respiratory Rate 12 14 Respiratory Effort Normal Blood Pressure 156/106 H 161/102 H Blood Pressure Mean 122 121 Pulse Ox 98 98 Oxygen Delivery Method Room Air Room Air 11/08/23 16:05 11/08/23 17:25 11/08/23 18:56 Temperature Temperature Source Pulse Rate 44 L 50 L Respiratory Rate 16 16 Respiratory Effort Blood Pressure 183/104 H 170/99 H Blood Pressure Mean 130 122 Pulse Ox 97 97 95 Oxygen Delivery Method Room Air Room Air Room Air 11/08/23 19:41 Temperature 98.0 F Temperature Source Pulse Rate 57 L Respiratory Rate 18 Respiratory Effort Blood Pressure 170/90 H Blood Pressure Mean 116 Pulse Ox 97 Oxygen Delivery Method MDM <SURY Mendoza - Last Filed: 11/08/23 19:12> [facility] Lab Data Labs: Laboratory Results - last 24 hr 11/08/23 11/08/23 16:02 18:04 WBC 5.9 RBC 4.66 Hgb 14.1 Hct 43.5 MCV 93.3 MCH 30.3 MCHC 32.4 RDW Std Deviation 42.6 RDW Coeff of Sudeep 12.3 Plt Count 133 L MPV 10.6 Immature Gran % (Auto) 0.200 Neut % (Auto) 61.8 Lymph % (Auto) 26.4 [place] % (Auto) 10.2 H Eos % (Auto) 0.7 Baso % (Auto) 0.7 Absolute Neuts (auto) 3.7 Absolute Lymphs (auto) 1.56 Nucleated RBC % 0 Sodium 138 Potassium 4.3 Chloride 107 Carbon Dioxide 27.0 Anion Gap 4 L BUN 19 H Creatinine 1.08 Estim Creat Clear Calc 59.27 Est GFR (MDRD) Af Amer 84 Est GFR (MDRD) Non-Af 70 BUN/Creatinine Ratio 17.6 Glucose 88 Calcium 8.7 Total Bilirubin 0.70 AST 23 ALT 8 L Alkaline Phosphatase 81 Troponin I High Sens 24 26 B-Natriuretic Peptide 52.9 Total Protein 7.0 Albumin 3.5 Globulin 3.5 Albumin/Globulin Ratio 1.0 Lipase 25 Radiography Diagnostic Testing: Clinical Impression(s) from Imaging Studies Chest X-Ray 11/08/23 16:15 IMPRESSION: No acute cardiopulmonary pathology Electronically Signed: Alberto Orellana MD at 16:35 EDT Reading Location ID and State: [facility] [place] / [place] Tel , Service support , EKG Sinus bradycardia, rate of 47: Attestation: I personally reviewed and interpreted this EKG as follows: Interpretation: Sinus Rhythm Comments: Sinus bradycardia, rate of 47 bpm, NE interval 196 ms, QRS duration 110 ms, no acute ST elevation, no acute infarct noted. Treatment and Re-Evaluation :: Differential diagnosis includes however is not limited to: ACS, IN, GERD, gastritis, neurological. Close looks. Patient appears generally well, vital signs are stable, patient is nontoxic- appearing. Presenting to the emergency department for complaints of chest burning that is been ongoing for 2 months. I did speak with the patient's primary care physician, there was concerned about some EKG changes, I did per form an EKG today, as well as I looked at an old 1 from July 2023, these do appear to be similar. Patient on my initial evaluation is in no distress. Patient will receive a cardiac workup including 2 troponins. Chest x-ray, laboratory values. All radiologic examinations were read, reviewed by the emergency department attending. From these reads, a plan of care will be put in place. Patient CBC was unremarkable, patient's chemistries were negative, patient's troponin initially was negative at 24, repeat will be drawn. Patient's chest x- ray was negative for any acute process. Patient remained stable. Patient will wait for repeat troponin. Repeat troponin was 26, repeat EKG was completed. We did send the EKGs to Dr. Camarena. He does not think that this is cardiac related. At this time, patient be discharged home, he will follow-up with his cloth bin packer. Patient is agreeable with the plan, instructed return for any worsening symptoms. <Dr. Jose Grimaldo, DO - Last Filed: 11/08/23 23:53> [facility] History & Record Review Discussion w/independent historian: Patient Lab Data Attestation: I reviewed the patient's lab results. Labs: Laboratory Results - last 24 hr 11/08/23 11/08/23 16:02 18:04 WBC 5.9 RBC 4.66 Hgb 14.1 Hct 43.5 MCV 93.3 MCH 30.3 MCHC 32.4 RDW Std Deviation 42.6 RDW Coeff of Sudeep 12.3 Plt Count 133 L MPV 10.6 Immature Gran % (Auto) 0.200 Neut % (Auto) 61.8 Lymph % (Auto) 26.4 [place] % (Auto) 10.2 H Eos % (Auto) 0.7 Baso % (Auto) 0.7 Absolute Neuts (auto) 3.7 Absolute Lymphs (auto) 1.56 Nucleated RBC % 0 Sodium 138 Potassium 4.3 Chloride 107 Carbon Dioxide 27.0 Anion Gap 4 L BUN 19 H Creatinine 1.08 Estim Creat Clear Calc 59.27 Est GFR (MDRD) Af Amer 84 Est GFR (MDRD) Non-Af 70 BUN/Creatinine Ratio 17.6 Glucose 88 Calcium 8.7 Total Bilirubin 0.70 AST 23 ALT 8 L Alkaline Phosphatase 81 Troponin I High Sens 24 26 B-Natriuretic Peptide 52.9 Total Protein 7.0 Albumin 3.5 Globulin 3.5 Albumin/Globulin Ratio 1.0 Lipase 25 Radiography Diagnostic Testing: Clinical Impression(s) from Imaging Studies Chest X-Ray 11/08/23 16:15 IMPRESSION: No acute cardiopulmonary pathology Electronically Signed: Alberto Orellana MD at 16:35 EDT , Treatment and Re-Evaluation :: Differential diagnosis includes however is not limited to: ACS, IN, GERD, gastritis, neurological. Close looks. Patient appears generally well, vital signs are stable, patient is nontoxic- appearing. Presenting to the emergency department for complaints of chest burning that is been ongoing for 2 months. I did speak with the patient's primary care physician, there was concerned about some EKG changes, I did perform an EKG today, as well as I looked at an old 1 from July 2023, these do appear to be similar. Patient on my initial evaluation is in no distress. Patient will receive a cardiac workup including 2 troponins. Chest x-ray, laboratory values. All radiologic examinations were read, reviewed by the emergency department attending. From these reads, a plan of care will be put in place. Patient CBC was unremarkable, patient's chemistries were negative, patient's troponin initially was negative at 24, repeat will be drawn. Patient's chest x- ray was negative for any acute process. Patient remained stable. Patient will wait for repeat troponin. Repeat troponin was 26, repeat EKG was completed. We did send the EKGs to Dr. Camarena. He does not think that this is cardiac related. At this time, patient be discharged home, he will follow-up with his cloth bin packer. Patient is agreeable with the plan, instructed return for any worsening symptoms. I have personally performed a face to face assessment of the patient and have reviewed the JAIR Note. I performed a substantive portion of the visit including all aspects of the following. My [place] findings include: History is 83-year-old male presenting to the emergency room with months. Symptoms are occasionally related to food as today he was trying to drink coffee and his symptoms got worse. Is not always associated with food. He had moves around in the chest. He states that he went to his doctor's office and had an EKG that was concerning so they sent him to the emergency department. He states he had a cardiac stress test about 1 year ago that was negative. He states he does not regularly check his blood pressure but has some numbers written down at home. He is noted to be hypertensive here. Exam is afebrile vital signs stable patient clinically appears well heart is regular without murmur lung sounds clear and equal Medical Decison Making [address] E[address] show a slight ST abnormality ventricular V1 and no notably in the V2. There was some similarities to EKG performed several months ago. 2 sets of cardiac enzymes are negative. I do not believe this to be pulmonary embolism in nature. My independent interpretation of the chest x-ray is no acute process no definitive aortic aneurysm noted or widening of the mediastinum. EKGs were reviewed with cardiology who felt that they could possib ly related to hypertension less likely to be ischemic in nature. I discussed with the patient and his that he may need an EGD to evaluate the esophagus as his symptoms are pretty atypical. They are frustrated with the medical community as they state that they are told always come to the emergency department but rarely get a definitive answer for his symptoms. They note prior questions that have not gone answered with his Parkinson's and then today's visits as examples. I did discuss that the emergency department cannot diagnose all medical problems nor is it its role to do so. They note understanding of this. Advised that he monitor his blood pressure and record the times and his numbers for his doctors to evaluate. Will follow-up with cardiology. I also encouraged GI for surgical evaluation for possible EGD Discharge Plan Triage Chief Complaint: Chest Other ED Midlevel Provider: Gustavo Christine ED Provider: Jose Grimaldo Dx/Rx/DC Orders Clinical Impression: Acute epigastric pain Instructions: ED Epigastric Pain Uncertain Cause Prescriptions: No Action tamsulosin 0.4 mg capsule 0.4 mg PO BID carbidopa-levodopa 25-100 mg tablet 1 tab PO BID droxidopa 100 mg capsule 100 mg PO DAILY Rx Instructions: Waiting for med from pharmacy omeprazole 40 mg capsule,delayed release(DR/EC) 40 mg PO DAILY Primary Care Provider: Felton Portillo Referrals: Leonarda Lomax MD [Med Staff - Active Staff] - Felton Portillo MD [Primary Care Provider] - Activity Restrictions/Additional Instructions: Please follow-up outpatient. Print Language: Swedish Disposition Disposition: Home, Self Care Discharge Date/Time: 11/08/23 19:44
--- NOTE | 2023-11-08 16:15 | RAD_ITS ---
STUDY: X-RAY CHEST REASON FOR EXAM: Male, 83 years old. chest pain TECHNIQUE: PA and lateral COMPARISON: January 17, 2023 FINDINGS: Minor chronic interstitial thickening in left lower lobe.. There is no demonstrated pleural abnormality. Normal size heart. Normal mediastinum and emily. Normal visualized pulmonary arteries. Tortuous aortic arch and descending thoracic aorta. Dorsal spine demonstrates degenerative change. Normal visualized ribs, clavicles, and shoulders. There is no demonstrated abnormality of the visualized soft tissue structures of the upper abdomen. No significant change since prior exam RAD/Chest PA and Lateral IMPRESSION: No acute cardiopulmonary pathology Electronically Signed: Alberto Orellana MD at 16:35 EDT ,
[2023-11-08 16:20] LABS: Absolute Lymphocyte Count 1.56 X10^3/uL (0.83-4.51); Absolute Neutrophil Count 3.7 X10^3/uL (2.0-7.7); Basophil# 0.04 X10^3/uL; Basophil% 0.7 % (0-1); Eosinophil# 0.04 X10^3/uL; Eosinophils% 0.7 % (0-5); Hematocrit 43.5 % (40-54); Hemoglobin 14.1 g/dL (13.0-16.5); Lymphocyte # 1.56 X10^3/ul (0.83-4.51); Lymphocyte % 26.4 % (19-41); Mean Corp Hgb Conc 32.4 g/dL (32-36); Mean Corpuscular Hgb 30.3 pg (27.0-32.0); Mean Corpuscular Volume 93.3 fL (80-94); Mean Platelet Vol. 10.6 fl (6.2-12.0); Monocyte% 10.2 % (0-10); NRBC Flagged by Analyzer 0 % (0-5); Neutrophil # 3.66 X10^3/uL (2.7-7.7); Neutrophil % 61.8 % (47-70); Platelet Count 133 K/mm3 (150-450); RBC Distribution Width CV 12.3 % (11.6-14.6); RBC Distribution Width SD 42.6 fl (35.1-43.9); Red Blood Count 4.66 M/mm3 (4.6-6.2); White Blood Count 5.9 K/mm3 (4.4-11.0)
[2023-11-08] MEDS: Aspirin 81 MG TAB.CHEW 324 MG PO (16:28)
[2023-11-08 16:39] LABS: AST(SGOT) 23 U/L (15-37); Alanine Aminotransfer ALT/SGPT 8 U/L (16-61); Albumin, Serum 3.5 g/dL (3.2-5.0); Alkaline Phosphatase 81 U/L (45-117); Anion Gap 4 (5-15); BUN 19 mg/dL (7-18); BUN/Creat Ratio 17.6 RATIO (10-20); Calcium,Total 8.7 mg/dL (8.5-10.1); Chloride 107 mmol/L (98-107); Creatinine, Serum 1.08 mg/dL (0.70-1.30); EST Glomerular Filtration Rate 70 mL/min (>60); Est Glom Filt Rate - Afr Amer 84 mL/min (>60); Estimated Creatinine Clearance 59.27 ml/min; Globulin 3.5 g/dL (2.2-4.2); Glucose 88 mg/dL (74-106); Lipase 25 U/L (13-75); Potassium 4.3 mmol/L (3.5-5.1); Sodium Level 138 mmol/L (136-145); Troponin-I HS (w/2H Reflex) 24 pg/mL (3.0-78.0)
[2023-11-08 16:40] LABS: BNP,B-Type NATRIURETIC PEPTIDE 52.9 pg/mL (0-100)
[2023-11-08 17:25] VITALS: BP 183/104; PULSE 44; RESP 16; O2SAT 97
[2023-11-08 18:12] LABS: Reflex Troponin-HS? (from REC) Y
[2023-11-08 18:32] LABS: Troponin-I HS 26 pg/mL (3.0-78.0)
--- NOTE | 2023-11-08 18:35 | EKG12_ITS ---
Test Reason : ABN EKG/SENT BY PCP Blood Pressure : / mmHG Vent. Rate : 047 BPM Atrial Rate : 047 BPM P-R Int : 196 ms QRS Dur : 110 ms QT Int : 470 ms P-R-T Axes : -09 016 073 degrees QTc Int : 415 ms Sinus bradycardia Nonspecific ST and T wave abnormality Abnormal ECG Confirmed by ANGIE BUSTOS, TAL ([id number]), subeditor TAMIE JUAREZ ([id number]) on 11/09/2023 2:55:30 PM Referred By: Confirmed By:TAL ADAMS MD
[2023-11-08 18:56] VITALS: BP 170/99; PULSE 50; RESP 16; O2SAT 95
[2023-11-08 19:41] VITALS: BP 170/90; PULSE 57; RESP 18; TEMP 36.7; O2SAT 97
--- NOTE | 2023-11-08 19:42 | ED.RN ---
DR Kelley MADE AWARE THAT THE PT'S IS NOT HAPPY ABOUT HER WAIT AND THE PT NOT SEEING THE DOCTOR MORE FREQUENTLY. MD SPOKE TO PT AND FAMILY.
== END 2023-11-08 19:44 | disposition home or self-care (01) ==
PROVIDERS: Nurse Practitioner; Emergency Provider Emergency Medicine; PCP Internal Medicine; Visit Provider Emergency Medicine
DX: R10.13 Epigastric pain (principal); G20.A1 Parkinson's disease without dyskinesia, without mention of fluctuations; I25.10 Atherosclerotic heart disease of native coronary artery without angina pectoris; I10 Essential (primary) hypertension; Z87.891 Personal history of nicotine dependence; Z86.16 Personal history of COVID-19; R94.31 Abnormal electrocardiogram [ECG] [EKG]; R07.9 Chest pain, unspecified; R42 Dizziness and giddiness
CPT/HCPCS: 71046; 80053; 83690; 83880; 84484; 85025; 93005; 99284; A4216

== ENCOUNTER → 2024-10-10 | Outpatient (CLI) | payer MEDICARE, SELFPAY ==
[2024-10-10 13:58] LABS: Anion Gap 11 (5-15); BUN 17 mg/dL (4-19); BUN/Creat Ratio 17.7 RATIO (10-20); Calcium,Total 8.9 mg/dL (7.6-11.0); Carbon Dioxide 23.6 mmol/L (21.0-32.0); Chloride 103 mmol/L (98-108); Glucose 99 mg/dL (70-99); Potassium 4.6 mmol/L (3.3-5.1)
== END | disposition home or self-care (01) ==
LOC: LAB 12:42
PROVIDERS: PCP Internal Medicine; Referring Provider Psychiatry & Neurology Neurology; Visit Provider Psychiatry & Neurology Neurology
DX: R42 Dizziness and giddiness (principal)
CPT/HCPCS: 36415; 80048

== ENCOUNTER → 2024-10-30 | Outpatient (CLI) | payer MEDICARE, SELFPAY ==
--- NOTE | 2024-10-30 13:22 | MRI_ITS ---
PROCEDURE: BRAIN W/WO CONTRAST 10/30/2024 REASON FOR EXAM: DIZZINESS GIDDINESS TECHNIQUE: Procedure Code: [id number] Modality: MR Procedure: BRAIN W/WO CONTRAST Multiplanar and multisequence images were obtained. CONTRAST: Clariscan VOLUME: 19 mL COMPARISON: None available. FINDINGS: No acute infarct or hemorrhage. 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 Scattered nonspecific periventricular and subcortical T2/FLAIR white matter hyperintensities in the cerebral hemispheres likely reflect chronic microvascular ischemic changes. No abnormal intracranial enhancement. No extra-axial fluid collection. No significant mass effect or herniation of the brain. Global cerebral volume loss. No hydrocephalus. The basal cisterns are patent. The intracranial large vessel arterial flow voids are maintained. Right mastoid air cell effusion. There is scattered paranasal mucosal thickening. The orbits are unremarkable. The calvarial bone marrow signal is within normal limits. Pannus formation at C1-C2 level flattens the ventral thecal sac. MRI/Brain W/WO Contrast IMPRESSION: No acute infarct, hemorrhage, significant mass effect, or enhancing intracrania l lesion. 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 Right mastoid air cell effusio n. Reading Location: [id number]
== END | disposition home or self-care (01) ==
PROVIDERS: PCP Internal Medicine; Referring Provider Psychiatry & Neurology Neurology; Visit Provider Psychiatry & Neurology Neurology
DX: R42 Dizziness and giddiness (principal)
CPT/HCPCS: 70553; A9575